=== PATIENT | female | born 1975 | race Caucasian/White ===

== ENCOUNTER → 2018-05-19 | Outpatient (REF) | payer OTHER ==
[2018-05-19 16:58] LABS: ALBUMIN 3.7 GM/DL (3.2-5.2); ALT/SGPT 103 U/L (12-78); BILIRUBIN,TOTAL 0.3 MG/DL (0.2-1.0); BLOOD UREA NITROGEN 14 MG/DL (7-18); CALCIUM LEVEL 9.6 MG/DL (8.5-10.1); CARBON DIOXIDE LEVEL 31 MEQ/L (21-32); CHLORIDE LEVEL 100 MEQ/L (98-107); CHOLESTEROL LEVEL 246 MG/DL (<200); CHOLESTEROL RISK RATIO 2.963 (<5); CREATININE FOR GFR 0.68 MG/DL (0.55-1.30); GLOMERULAR FILTRATION RATE > 60.0 (>58); GLUCOSE, FASTING 70 MG/DL (70-100); HDL CHOLESTEROL 83 MG/DL (>40); LDL CHOLESTEROL 144 MG/DL (<100); NON-HDL-C 163 MG/DL; POTASSIUM SERUM 4.6 MEQ/L (3.5-5.1); SODIUM LEVEL 137 MEQ/L (136-145); TOTAL PROTEIN 8.2 GM/DL (6.4-8.2); TRIGLYCERIDES LEVEL 96 MG/DL (<150)
[2018-05-19 17:09] LABS: CREATININE, URINE 35.5 MG/DL; MALB URINE SIEMENS 99.3 MG/L; MAU/CREAT RATIO 279.7 MCG/MG (0.0-30.0)
== END ==
LOC: M LAB REF 16:10
PROVIDERS: ATTEND Nurse Practitioner Primary Care
DX: E10.21 Type 1 diabetes mellitus with diabetic nephropathy (principal)

== ENCOUNTER 2019-05-23 12:59 | Emergency (ER) | payer MEDICAID, OTHER ==
[~2019-05-23] VITALS: Ht 154.9 cm; Wt 67.3 kg
[2019-05-23 13:00] VITALS: BP 135/69
[2019-05-23] MEDS ORDERED: BASA100I (13:08)
[2019-05-23] MEDS ORDERED: GABA600T4 (13:08)
[2019-05-23] MEDS ORDERED: BACL1TAB9 (13:08)
[2019-05-23] MEDS ORDERED: ADME100I (13:08)
[2019-05-23] MEDS ORDERED: BUPR1FIL3 (13:08)
[2019-05-23] MEDS ORDERED: ADDE25CA (13:08)
[2019-05-23] MEDS ORDERED: BACT800T5 PO (13:34)
== END 2019-05-23 13:40 | disposition home or self-care (01) ==
LOC: M ED 12:59
DX: L02.411 Cutaneous abscess of right axilla (principal); F19.10 Other psychoactive substance abuse, uncomplicated; E11.9 Type 2 diabetes mellitus without complications; F32.9 Major depressive disorder, single episode, unspecified; F17.200 Nicotine dependence, unspecified, uncomplicated; Z88.0 Allergy status to penicillin; Z79.899 Other long term (current) drug therapy; Z79.4 Long term (current) use of insulin

== ENCOUNTER 2019-10-14 14:04 | Inpatient (IN) | payer MEDICAID ==
[~2019-10-14 14:04] MED LIST: ADDE25CA; ADME100I; BACL1TAB9; BACT800T5 PO; BASA100I; BUPR1FIL3; GABA600T4
[2019-10-14] MEDS ORDERED: INSULIN REGULAR 100UNITS IN 0.9% SODIUM CHLORIDE 100ML IVBAG As Ordered ONE (17:41)
[2019-10-14] MEDS ORDERED: HumuLIN R (REGULAR) INSULIN (NovoLIN R) **100U/ML** PER UNIT As Ordered ONE (17:41)
[2019-10-15] MEDS ORDERED: LEVEMIR (INSULIN DETEMIR) 1 UNITS/0.01ML As Ordered ONE (08:07)
[2019-10-15] MEDS ORDERED: DULoxetine 30 MG CAP (CYMBALTA) As Ordered ONE (09:15)
[2019-10-15] MEDS ORDERED: GABAPENTIN 300 MG CAP As Ordered ONE (09:15)
== END 2019-10-15 09:29 | disposition left against medical advice (07) | DRG 420 ==
LOC: M ED 14:04 → M ICU 18:30
PROVIDERS: ADMIT Internal Medicine; ATTEND Internal Medicine
DX: E10.65 Type 1 diabetes mellitus with hyperglycemia (principal); B18.2 Chronic viral hepatitis C; F17.200 Nicotine dependence, unspecified, uncomplicated; G93.41 Metabolic encephalopathy

== ENCOUNTER → 2020-06-16 | Outpatient (CLI) | payer OTHER ==
[2020-06-16 13:54] LABS: HEMATOCRIT 39.8 % (36.0-47.0); HEMOGLOBIN 12.5 g/dl (12.0-15.5); MEAN CORPUSCULAR HGB CONC 31.4 g/dl (32.0-36.5); MEAN CORPUSCULAR VOLUME 95.4 fl (80.0-96.0); PLATELET COUNT, AUTOMATED 426 10^3/uL (150-450); RED BLOOD COUNT 4.17 10^6/uL (4.00-5.40); WHITE BLOOD COUNT 9.1 10^3/uL (4.0-10.0)
[2020-06-16 14:25] LABS: ALBUMIN 3.6 GM/DL (3.2-5.2); ALT/SGPT 44 U/L (12-78); BILIRUBIN,TOTAL 0.2 MG/DL (0.2-1.0); BLOOD UREA NITROGEN 17 MG/DL (7-18); CALCIUM LEVEL 9.7 MG/DL (8.5-10.1); CARBON DIOXIDE LEVEL 33 MEQ/L (21-32); CHLORIDE LEVEL 99 MEQ/L (98-107); CREATININE FOR GFR 1.15 MG/DL (0.55-1.30); GLOMERULAR FILTRATION RATE 54.8 (>58); GLUCOSE, FASTING 184 MG/DL (70-100); POTASSIUM SERUM 4.3 MEQ/L (3.5-5.1); SODIUM LEVEL 137 MEQ/L (136-145); TOTAL PROTEIN 7.8 GM/DL (6.4-8.2)
[2020-06-16 14:44] LABS: HEPATITIS B SURFACE ANTIGEN NEGATIVE (NEGATIVE)
[2020-06-16 14:48] LABS: HCG, SERUM QUALITATIVE NEGATIVE (NEGATIVE)
[2020-06-16 15:13] LABS: HIV 1&2 SCREEN CENTAUR NEGATIVE (NEGATIVE)
[2020-06-16 15:23] LABS: HEPATITIS C VIRUS ABY INDEX > 11.0 INDEX (<0.8)
--- NOTE | 2020-06-16 22:02 | ECGEPIP ---
[facility] Test Date: 2020-06-16 Pat Name: ROLAND STROUD Department: Room: - Gender: Female Inclusion Specialist: YEMI : [id number] Requested By: Leonardo Lane Order Number: [id number] Reading MD: Frank Gallegos Measurements Intervals Tad Rate: 108 P: 64 VT: 148 QRS: 91 QRSD: 70 T: 60 QT: 340 QTc: 455 Interpretive Statements Sinus tachycardia LA conduction disturbance Somewhat low voltages with slow per corneal R wave progression and incomplete RBBB; body habitus versus pulmonary disease. Could not rule out prior septal injury. No prior tracing for comparison. Clincal correlation advised Electronically Signed on 06-16-2020 22:01:36 EDT by Frank Gallegos
== END ==
LOC: M LAB 12:43
PROVIDERS: ATTEND Family Medicine
DX: F11.20 Opioid dependence, uncomplicated (principal)

== ENCOUNTER → 2021-08-06 | Outpatient (CLI) | payer OTHER ==
[2021-08-06 16:37] LABS: HEMATOCRIT 36.5 % (36.0-47.0); HEMOGLOBIN 11.4 g/dl (12.0-15.5); MEAN CORPUSCULAR HEMOGLOBIN 28.7 pg (27.0-33.0); MEAN CORPUSCULAR HGB CONC 31.2 g/dl (32.0-36.5); MEAN CORPUSCULAR VOLUME 91.9 fl (80.0-96.0); PLATELET COUNT, AUTOMATED 600 10^3/uL (150-450); RED BLOOD COUNT 3.97 10^6/uL (4.00-5.40); WHITE BLOOD COUNT 10.7 10^3/uL (4.0-10.0)
[2021-08-06 17:34] LABS: HCG, SERUM QUALITATIVE NEGATIVE (NEGATIVE)
[2021-08-06 18:51] LABS: ALBUMIN 2.7 GM/DL (3.2-5.2); ALT/SGPT 20 U/L (12-78); BILIRUBIN,TOTAL 0.2 MG/DL (0.2-1.0); BLOOD UREA NITROGEN 15 MG/DL (7-18); CALCIUM LEVEL 9.1 MG/DL (8.5-10.1); CARBON DIOXIDE LEVEL 31 MEQ/L (21-32); CHLORIDE LEVEL 96 MEQ/L (98-107); CREATININE FOR GFR 1.21 MG/DL (0.55-1.30); GLOMERULAR FILTRATION RATE 51.2 (>58); GLUCOSE, FASTING 429 MG/DL (70-100); HEPATITIS B SURFACE ANTIGEN NEGATIVE (NEGATIVE); HEPATITIS C VIRUS ABY INDEX > 11.0 INDEX (<0.8); HIV 1&2 SCREEN CENTAUR NEGATIVE (NEGATIVE); POTASSIUM SERUM 5.5 MEQ/L (3.5-5.1); SODIUM LEVEL 130 MEQ/L (136-145); TOTAL PROTEIN 8.1 GM/DL (6.4-8.2)
[2021-08-06 19:01] LABS: GC DNA AMPLIFICATION NEGATIVE (NEGATIVE)
[2021-08-08 15:07] LABS: HEPATITIS C QUANTITATION 22500 IU/mL (.)
== END ==
LOC: M WUC 12:29
PROVIDERS: ATTEND Family Medicine
DX: F11.20 Opioid dependence, uncomplicated (principal); Z79.899 Other long term (current) drug therapy

== ENCOUNTER → 2022-07-30 | Outpatient (CLI) | payer OTHER ==
[2022-07-30 16:34] LABS: HEMATOCRIT 37.9 % (36.0-47.0); HEMOGLOBIN 11.9 g/dl (12.0-15.5); MEAN CORPUSCULAR HEMOGLOBIN 28.8 pg (27.0-33.0); MEAN CORPUSCULAR HGB CONC 31.4 g/dl (32.0-36.5); MEAN CORPUSCULAR VOLUME 91.8 fl (80.0-96.0); PLATELET COUNT, AUTOMATED 330 10^3/uL (150-450); RED BLOOD COUNT 4.13 10^6/uL (4.00-5.40); WHITE BLOOD COUNT 5.9 10^3/uL (4.0-10.0)
[2022-07-30 16:54] LABS: HCG, SERUM QUALITATIVE NEGATIVE (NEGATIVE)
[2022-07-30 17:03] LABS: HEPATITIS B SURFACE ANTIGEN NEGATIVE (NEGATIVE)
[2022-07-30 17:15] LABS: HIV 1&2 SCREEN NEGATIVE (NEGATIVE)
[2022-07-30 17:30] LABS: ALBUMIN 3.3 G/DL (3.2-5.2); ALKALINE PHOSPHATASE 257 U/L (46-116); ALT/SGPT 35 U/L (7.0-40); AST/SGOT 38 U/L (<34); BILIRUBIN,TOTAL 0.2 MG/DL (0.3-1.2); BLOOD UREA NITROGEN 23 MG/DL (9-23); CALCIUM LEVEL 9.5 MG/DL (8.5-10.1); CARBON DIOXIDE LEVEL 30 MMOL/L (20-31); CHLORIDE LEVEL 99 MMOL/L (98-107); CREATININE FOR GFR 1.11 MG/DL (0.55-1.30); GLOMERULAR FILTRATION RATE 56.3 (>58); GLUCOSE, FASTING 419 MG/DL (60-100); POTASSIUM SERUM 4.5 MMOL/L (3.5-5.1); SODIUM LEVEL 134 MMOL/L (136-145); TOTAL PROTEIN 7.7 G/DL (5.7-8.2)
[2022-07-30 17:31] LABS: HEPATITIS C VIRUS ABY INDEX > 11.0 INDEX (<0.8)
[2022-07-30 18:26] LABS: GC DNA AMPLIFICATION NEGATIVE (NEGATIVE)
== END ==
LOC: M LAB 15:15
PROVIDERS: ATTEND Family Medicine
DX: F11.20 Opioid dependence, uncomplicated (principal)

== ENCOUNTER 2023-01-25 02:08 | Inpatient (IN) | payer OTHER ==
[~2023-01-25] VITALS: Ht 154.9 cm; Wt 47.7 kg
[~2023-01-25 02:08] MED LIST changes: -ADME100I; +ADME100I SC; -BACL1TAB9; +BACL1TAB9 PO; -BASA100I; +BASA100I PO; -GABA600T4; +GABA600T4 PO
[2023-01-25 03:01] LABS: VENOUS BASE EXCESS 4.5 (-2.0-2.0); VENOUS HCO3 32.4 MMOL/L (23.0-27.0); VENOUS O2 SATURATION 50.9 % (60.0-80.0); VENOUS PH 7.316 UNITS (7.330-7.430); VENOUS STANDARD HCO3 27.4 MMOL/L; VENOUS TOTAL CO2 34.4 MMOL/L (24.0-28.0)
[2023-01-25 03:08] LABS: BASO # 0.1 10^3/uL (0.0-0.2); BASO % 0.3 % (0.0-1.0); EOS # 0.1 10^3/uL (0.0-0.5); EOS % 0.2 % (0.0-3.0); HEMATOCRIT 34.4 % (36.0-47.0); HEMOGLOBIN 11.2 g/dl (12.0-15.5); LYMPH # 3.5 10^3/uL (1.5-5.0); LYMPH % 12.8 % (24.0-44.0); MEAN CORPUSCULAR HEMOGLOBIN 28.9 pg (27.0-33.0); MEAN CORPUSCULAR HGB CONC 32.6 g/dl (32.0-36.5); MEAN CORPUSCULAR VOLUME 88.7 fl (80.0-96.0); MONO # 1.3 10^3/uL (0.0-0.8); MONO % 4.8 % (2.0-8.0); NEUTROPHILS # 22.3 10^3/uL (1.5-8.5); NEUTROPHILS % 80.5 % (36.0-66.0); PLATELET COUNT, AUTOMATED 470 10^3/uL (150-450); RED BLOOD COUNT 3.88 10^6/uL (4.00-5.40); WHITE BLOOD COUNT 27.7 10^3/uL (4.0-10.0)
[2023-01-25 03:40] LABS: ACETONE/KETONE 0.52 MMOL/L (0.02-0.27); ALBUMIN 2.5 G/DL (3.2-5.2); BILIRUBIN,DIRECT 0.1 MG/DL (<0.4); BILIRUBIN,TOTAL 0.3 MG/DL (0.3-1.2); CALCIUM LEVEL 9.5 MG/DL (8.5-10.1); CREATININE FOR GFR 1.07 MG/DL (0.55-1.30); GLOMERULAR FILTRATION RATE 58.8 (>58); TOTAL PROTEIN 7.4 G/DL (5.7-8.2)
[2023-01-25] MEDS ORDERED: VANCOMYCIN HCL 1,500 MG in IV FLUID PLACE HOLDER 1 EA IV ONE (05:20)
[2023-01-25] MEDS ORDERED: NS 1,000 ML IV ONE (05:20)
[2023-01-25] MEDS ORDERED: ISOVUE-370 76% 100ML VIAL As Ordered ONE (05:38)
[2023-01-25] MEDS ORDERED: VANCOMYCIN HCL 750 MG, VIAL MATE ADAPTER 1 EACH in D5W 250 ML IV ONE ×6 (06:00)
[2023-01-25] MEDS ORDERED: CEFEPIME HCL 1 GM in D5W MINI-BAG PLUS 50 ML IV ONE (06:10)
[2023-01-25] MEDS ORDERED: GLUCAGON INJ 1MG VIAL SC PRN ×2 (07:40→21:05)
[2023-01-25] MEDS ORDERED: GLUCOSE 4GM CHEW TABLET PO PRN ×2 (07:40→21:05)
[2023-01-25] MEDS ORDERED: DEXTROSE 50% 50ML SYRINGE IV PRN ×2 (07:40→21:05)
[2023-01-25] MEDS ORDERED: metroNIDAZOLE 500 MG in IV 1 EA IV SCH (07:50)
[2023-01-25] MEDS ORDERED: VANCOMYCIN HCL 1,000 MG, VIAL MATE ADAPTER 1 EACH in D5W 250 ML IV SCH (07:50)
[2023-01-25] MEDS ORDERED: MED REC IN PROGRESS XX SCH (09:00)
[2023-01-25 09:04] LABS: RSV AMPLIFICATION NEGATIVE (NEGATIVE)
[2023-01-25] MEDS: NS 1,000 ML IV SCH ×2 (10:17→21:35)
[2023-01-25] MEDS ORDERED: PIPERACILLIN/TAZOBACTAM SOD 4.5 GM in D5W MINI-BAG PLUS 50 ML IV SCH (11:15)
[2023-01-25 11:16] VITALS: BP 140/74; TEMP 97.2; O2SAT 100
[2023-01-25] MEDS: INSULIN LISPRO (NovoLOG) PER UNIT SC SCH ×2 (12:17→18:00)
[2023-01-25] MEDS ORDERED: VYVA70CA3 PO (12:51)
[2023-01-25] MEDS ORDERED: DULO1CAP6 PO (12:51)
[2023-01-25] MEDS ORDERED: DOCU100C16 PO (12:51)
[2023-01-25] MEDS ORDERED: METH10CO PO (12:51)
[2023-01-25] MEDS ORDERED: HOME MED LIST COMPLETE! XX SCH (12:55)
[2023-01-25] MEDS ORDERED: CLINDAMYCIN 600 MG in IV 1 EA IV SCH (13:45)
[2023-01-25 14:00] VITALS: BP 118/66; TEMP 97.6; O2SAT 97
[2023-01-25] MEDS: ENOXAPARIN 40MG/0.4ML SYRINGE (J1650 PER 10MG) SC SCH (14:20)
[2023-01-25] MEDS: MEROPENEM INJ 1 GM in IV 1 EA IV SCH ×2 (15:09→23:23)
[2023-01-25] MEDS: CLINDAMYCIN 900 MG in IV 1 EA IV SCH (16:31)
[2023-01-25] MEDS: GABAPENTIN 300 MG CAP PO SCH ×2 (16:31→21:32)
[2023-01-25] MEDS: LACTOBACILLUS ACIDOPHILUS CAP (BACID) PO SCH (18:00)
[2023-01-25] MEDS ORDERED: LIDOCAINE 1% SDV 30ML VIAL As Ordered ONE (18:04)
[2023-01-25] MEDS ORDERED: KETOROLAC 60MG 2ML VIAL As Ordered ONE (18:34)
[2023-01-25] MEDS ORDERED: LIDOCAINE 2% 100MG/5ML SDV (FOR ANES.) As Ordered ONE (18:34)
[2023-01-25] MEDS ORDERED: MIDAZOLAM INJ 2MG/2ML VIAL As Ordered ONE (18:34)
[2023-01-25] MEDS ORDERED: propofoL 200 MG/20 ML VIAL As Ordered ONE (18:34)
[2023-01-25] MEDS ORDERED: ONDANSETRON 4MG 2ML VIAL As Ordered ONE (18:34)
[2023-01-25] MEDS ORDERED: fentaNYL 100 MCG/2 ML INJECTION As Ordered ONE (18:35)
[2023-01-25 20:30] VITALS: BP 111/67; O2SAT 97
[2023-01-25 21:05] VITALS: BP 123/66; TEMP 97.7; O2SAT 99
[2023-01-25] MEDS ORDERED: INSULIN LISPRO (NovoLOG) PER UNIT SC SCH (21:05)
[2023-01-25] MEDS: DULoxetine 30MG CAPSULE (CYMBALTA) PO SCH (21:32)
[2023-01-25] MEDS: LEVEMIR (INSULIN DETEMIR) 1 UNITS/0.01ML SC SCH (21:35)
[2023-01-25] MEDS: VANCOMYCIN HCL 500 MG in D5W MINI-BAG PLUS 100 ML IV SCH (21:35)
[2023-01-25 22:00] VITALS: BP 118/56; TEMP 97.5; O2SAT 98
[2023-01-25 23:04] VITALS: BP 112/61; TEMP 98; O2SAT 97
[2023-01-26 00:02] VITALS: BP 106/59; TEMP 97.7; O2SAT 96
[2023-01-26] MEDS: CLINDAMYCIN 900 MG in IV 1 EA IV SCH ×4 (00:22→23:23)
[2023-01-26 00:58] VITALS: BP 112/60; TEMP 98.5; O2SAT 97
[2023-01-26] MEDS: NS 1,000 ML IV SCH ×4 (03:49→23:23)
[2023-01-26 05:23] VITALS: BP 101/57; TEMP 102; O2SAT 98
[2023-01-26] MEDS: ACETAMINOPHEN TAB 650MG DOSE (2X325MG) PO PRN (05:29)
[2023-01-26] MEDS: MEROPENEM INJ 1 GM in IV 1 EA IV SCH ×3 (06:25→21:40)
[2023-01-26 06:27] VITALS: TEMP 100.8
[2023-01-26 06:28] LABS: BASO # 0.1 10^3/uL (0.0-0.2); BASO % 0.2 % (0.0-1.0); EOS % 0.1 % (0.0-3.0); HEMATOCRIT 28.8 % (36.0-47.0); HEMOGLOBIN 9.5 g/dl (12.0-15.5); LYMPH # 1.9 10^3/uL (1.5-5.0); LYMPH % 7.9 % (24.0-44.0); MEAN CORPUSCULAR HEMOGLOBIN 29.4 pg (27.0-33.0); MEAN CORPUSCULAR VOLUME 89.2 fl (80.0-96.0); MONO # 1.2 10^3/uL (0.0-0.8); NEUTROPHILS # 20.1 10^3/uL (1.5-8.5); NEUTROPHILS % 85.4 % (36.0-66.0); PLATELET COUNT, AUTOMATED 412 10^3/uL (150-450); RED BLOOD COUNT 3.23 10^6/uL (4.00-5.40); WHITE BLOOD COUNT 23.5 10^3/uL (4.0-10.0)
[2023-01-26 07:04] LABS: BLOOD UREA NITROGEN 30 MG/DL (9-23); CALCIUM LEVEL 7.9 MG/DL (8.5-10.1); CARBON DIOXIDE LEVEL 28 MMOL/L (20-31); CHLORIDE LEVEL 102 MMOL/L (98-107); CREATININE FOR GFR 0.92 MG/DL (0.55-1.30); GLOMERULAR FILTRATION RATE > 60.0 (>58); GLUCOSE, FASTING 140 MG/DL (60-100); POTASSIUM SERUM 4.7 MMOL/L (3.5-5.1); SODIUM LEVEL 135 MMOL/L (136-145)
[2023-01-26] MEDS: ENOXAPARIN 40MG/0.4ML SYRINGE (J1650 PER 10MG) SC SCH (07:54)
[2023-01-26] MEDS: LACTOBACILLUS ACIDOPHILUS CAP (BACID) PO SCH ×2 (07:54→17:43)
[2023-01-26] MEDS: GABAPENTIN 300 MG CAP PO SCH ×4 (07:54→20:49)
[2023-01-26] MEDS: INSULIN LISPRO (NovoLOG) PER UNIT SC SCH ×4 (07:55→21:00)
[2023-01-26] MEDS: KETOROLAC 30 MG/ML 1ML VIAL IV PRN ×2 (08:00→20:49)
[2023-01-26] MEDS: VANCOMYCIN HCL 500 MG in D5W MINI-BAG PLUS 100 ML IV SCH ×2 (09:08→20:49)
[2023-01-26] MEDS: METHADONE 10MG TAB PO SCH (09:08)
[2023-01-26 14:03] VITALS: BP 120/62; TEMP 98.4; O2SAT 97
[2023-01-26 20:00] VITALS: BP 134/69; TEMP 98.2; O2SAT 99
[2023-01-26] MEDS: DULoxetine 30MG CAPSULE (CYMBALTA) PO SCH (20:49)
[2023-01-26] MEDS ORDERED: MEROPENEM INJ 1 GM in IV 1 EA IV SCH (21:00)
[2023-01-26] MEDS: LEVEMIR (INSULIN DETEMIR) 1 UNITS/0.01ML SC SCH (21:37)
[2023-01-27] MEDS: MEROPENEM INJ 1 GM in IV 1 EA IV SCH ×3 (05:10→21:18)
[2023-01-27 06:00] VITALS: BP 120/65; TEMP 98; O2SAT 94
[2023-01-27 06:58] LABS: BASO # 0.1 10^3/uL (0.0-0.2); BASO % 0.3 % (0.0-1.0); EOS # 0.2 10^3/uL (0.0-0.5); HEMATOCRIT 29.7 % (36.0-47.0); HEMOGLOBIN 9.4 g/dl (12.0-15.5); LYMPH # 2.4 10^3/uL (1.5-5.0); LYMPH % 15.5 % (24.0-44.0); MEAN CORPUSCULAR HEMOGLOBIN 28.4 pg (27.0-33.0); MEAN CORPUSCULAR HGB CONC 31.6 g/dl (32.0-36.5); MEAN CORPUSCULAR VOLUME 89.7 fl (80.0-96.0); MONO # 0.8 10^3/uL (0.0-0.8); MONO % 5.3 % (2.0-8.0); NEUTROPHILS % 76.4 % (36.0-66.0); PLATELET COUNT, AUTOMATED 417 10^3/uL (150-450); RED BLOOD COUNT 3.31 10^6/uL (4.00-5.40); WHITE BLOOD COUNT 15.7 10^3/uL (4.0-10.0)
[2023-01-27 07:29] LABS: BLOOD UREA NITROGEN 20 MG/DL (9-23); CALCIUM LEVEL 7.5 MG/DL (8.5-10.1); CARBON DIOXIDE LEVEL 29 MMOL/L (20-31); CHLORIDE LEVEL 104 MMOL/L (98-107); CREATININE FOR GFR 0.84 MG/DL (0.55-1.30); GLOMERULAR FILTRATION RATE > 60.0 (>58); GLUCOSE, FASTING 69 MG/DL (60-100); POTASSIUM SERUM 4.2 MMOL/L (3.5-5.1); SODIUM LEVEL 138 MMOL/L (136-145)
[2023-01-27] MEDS: INSULIN LISPRO (NovoLOG) PER UNIT SC SCH ×6 (07:30→21:10)
[2023-01-27] MEDS: LACTOBACILLUS ACIDOPHILUS CAP (BACID) PO SCH ×2 (08:00→17:40)
[2023-01-27] MEDS: ENOXAPARIN 40MG/0.4ML SYRINGE (J1650 PER 10MG) SC SCH (09:00)
[2023-01-27] MEDS: GABAPENTIN 300 MG CAP PO SCH ×4 (09:12→21:18)
[2023-01-27] MEDS: METHADONE 10MG TAB PO SCH (09:12)
[2023-01-27] MEDS: KETOROLAC 30 MG/ML 1ML VIAL IV PRN ×2 (09:17→21:18)
[2023-01-27] MEDS: VANCOMYCIN HCL 500 MG in D5W MINI-BAG PLUS 100 ML IV SCH ×2 (09:22→20:00)
[2023-01-27] MEDS: CLINDAMYCIN 900 MG in IV 1 EA IV SCH (09:27)
[2023-01-27 14:00] VITALS: BP 127/68; TEMP 98; O2SAT 95
[2023-01-27 20:48] VITALS: BP 126/67; TEMP 98.4; O2SAT 96
[2023-01-27] MEDS: LEVEMIR (INSULIN DETEMIR) 1 UNITS/0.01ML SC SCH (21:18)
[2023-01-27] MEDS: DULoxetine 30MG CAPSULE (CYMBALTA) PO SCH (21:18)
[2023-01-28] MEDS: MEROPENEM INJ 1 GM in IV 1 EA IV SCH ×3 (05:43→21:06)
[2023-01-28 06:00] VITALS: BP 121/65; TEMP 98; O2SAT 96
[2023-01-28 06:02] LABS: BASO # 0.1 10^3/uL (0.0-0.2); BASO % 0.4 % (0.0-1.0); EOS # 0.2 10^3/uL (0.0-0.5); EOS % 1.9 % (0.0-3.0); HEMATOCRIT 29.1 % (36.0-47.0); HEMOGLOBIN 9.3 g/dl (12.0-15.5); LYMPH # 3.2 10^3/uL (1.5-5.0); LYMPH % 28.4 % (24.0-44.0); MEAN CORPUSCULAR HEMOGLOBIN 28.4 pg (27.0-33.0); MONO # 0.8 10^3/uL (0.0-0.8); MONO % 6.7 % (2.0-8.0); NEUTROPHILS # 6.7 10^3/uL (1.5-8.5); NEUTROPHILS % 60.3 % (36.0-66.0); PLATELET COUNT, AUTOMATED 463 10^3/uL (150-450); RED BLOOD COUNT 3.27 10^6/uL (4.00-5.40); WHITE BLOOD COUNT 11.2 10^3/uL (4.0-10.0)
[2023-01-28 06:34] LABS: BLOOD UREA NITROGEN 18 MG/DL (9-23); CALCIUM LEVEL 7.8 MG/DL (8.5-10.1); CARBON DIOXIDE LEVEL 30 MMOL/L (20-31); CHLORIDE LEVEL 101 MMOL/L (98-107); CREATININE FOR GFR 0.76 MG/DL (0.55-1.30); GLOMERULAR FILTRATION RATE > 60.0 (>58); GLUCOSE, FASTING 192 MG/DL (60-100); SODIUM LEVEL 135 MMOL/L (136-145)
[2023-01-28] MEDS: INSULIN LISPRO (NovoLOG) PER UNIT SC SCH ×7 (07:30→21:07)
[2023-01-28] MEDS: ENOXAPARIN 40MG/0.4ML SYRINGE (J1650 PER 10MG) SC SCH (08:16)
[2023-01-28] MEDS: GABAPENTIN 300 MG CAP PO SCH ×4 (08:16→21:06)
[2023-01-28] MEDS: METHADONE 10MG TAB PO SCH (08:16)
[2023-01-28] MEDS: LACTOBACILLUS ACIDOPHILUS CAP (BACID) PO SCH ×2 (08:16→17:15)
[2023-01-28] MEDS: VANCOMYCIN HCL 500 MG in D5W MINI-BAG PLUS 100 ML IV SCH (08:17)
[2023-01-28] MEDS ORDERED: fentaNYL 100 MCG/2 ML INJECTION As Ordered ONE (09:24)
[2023-01-28] MEDS ORDERED: MIDAZOLAM INJ 2MG/2ML VIAL As Ordered ONE (09:24)
[2023-01-28] MEDS ORDERED: propofoL 200 MG/20 ML VIAL As Ordered ONE ×2 (09:24→11:47)
[2023-01-28] MEDS ORDERED: LIDOCAINE 2% 100MG/5ML SDV (FOR ANES.) As Ordered ONE (09:25)
[2023-01-28] MEDS ORDERED: ONDANSETRON 4MG 2ML VIAL As Ordered ONE (09:25)
[2023-01-28] MEDS: KETOROLAC 30 MG/ML 1ML VIAL IV PRN ×3 (09:35→21:40)
[2023-01-28] MEDS ORDERED: LIDOCAINE 1% MDV 20ML VIAL As Ordered ONE (11:11)
[2023-01-28] MEDS ORDERED: ONDANSETRON 4MG 2ML VIAL IV PRN (12:15)
[2023-01-28] MEDS ORDERED: INSULIN LISPRO (NovoLOG) PER UNIT SC PRN ×2 (12:15→12:20)
[2023-01-28] MEDS ORDERED: LR 1,000 ML IV SCH ×2 (12:15→12:20)
[2023-01-28] MEDS ORDERED: METOCLOPRAMIDE INJ 10MG/2ML VIAL IV PRN (12:15)
[2023-01-28] MEDS ORDERED: fentaNYL 100 MCG/2 ML INJECTION IV PRN (12:15)
[2023-01-28] MEDS ORDERED: oxyCODONE 5MG TAB PO PRN (12:15)
[2023-01-28 13:00] VITALS: BP 127/74; TEMP 97; O2SAT 92
[2023-01-28 13:45] VITALS: BP 144/72; TEMP 97.2; O2SAT 99
[2023-01-28] MEDS: SENOKOT S TAB PO SCH (21:07)
[2023-01-28] MEDS: DULoxetine 30MG CAPSULE (CYMBALTA) PO SCH (21:07)
[2023-01-28] MEDS: LEVEMIR (INSULIN DETEMIR) 1 UNITS/0.01ML SC SCH (21:08)
[2023-01-28 21:18] VITALS: BP 141/67; TEMP 98.4; O2SAT 96
[2023-01-29 01:20] VITALS: BP 131/70; TEMP 98; O2SAT 97
[2023-01-29 05:20] VITALS: BP 121/61; TEMP 98.8; O2SAT 93
[2023-01-29] MEDS: MEROPENEM INJ 1 GM in IV 1 EA IV SCH ×3 (05:27→21:04)
[2023-01-29] MEDS: KETOROLAC 30 MG/ML 1ML VIAL IV PRN ×3 (06:31→20:29)
[2023-01-29 06:40] LABS: BASO % 0.4 % (0.0-1.0); EOS # 0.2 10^3/uL (0.0-0.5); EOS % 2.1 % (0.0-3.0); HEMATOCRIT 27.2 % (36.0-47.0); HEMOGLOBIN 8.7 g/dl (12.0-15.5); LYMPH # 2.5 10^3/uL (1.5-5.0); LYMPH % 23.8 % (24.0-44.0); MEAN CORPUSCULAR HEMOGLOBIN 28.5 pg (27.0-33.0); MEAN CORPUSCULAR VOLUME 89.2 fl (80.0-96.0); MONO # 0.9 10^3/uL (0.0-0.8); MONO % 8.1 % (2.0-8.0); NEUTROPHILS # 6.8 10^3/uL (1.5-8.5); NEUTROPHILS % 63.5 % (36.0-66.0); PLATELET COUNT, AUTOMATED 490 10^3/uL (150-450); RED BLOOD COUNT 3.05 10^6/uL (4.00-5.40); WHITE BLOOD COUNT 10.7 10^3/uL (4.0-10.0)
[2023-01-29 07:03] LABS: BLOOD UREA NITROGEN 15 MG/DL (9-23); CALCIUM LEVEL 7.9 MG/DL (8.5-10.1); CARBON DIOXIDE LEVEL 30 MMOL/L (20-31); CHLORIDE LEVEL 100 MMOL/L (98-107); CREATININE FOR GFR 0.68 MG/DL (0.55-1.30); GLOMERULAR FILTRATION RATE > 60.0 (>58); GLUCOSE, FASTING 128 MG/DL (60-100); POTASSIUM SERUM 4.6 MMOL/L (3.5-5.1); SODIUM LEVEL 133 MMOL/L (136-145)
[2023-01-29] MEDS: INSULIN LISPRO (NovoLOG) PER UNIT SC SCH ×7 (07:30→21:00)
[2023-01-29] MEDS: GABAPENTIN 300 MG CAP PO SCH ×4 (07:47→20:27)
[2023-01-29] MEDS: LACTOBACILLUS ACIDOPHILUS CAP (BACID) PO SCH ×2 (07:47→17:09)
[2023-01-29] MEDS: METHADONE 10MG TAB PO SCH (07:48)
[2023-01-29] MEDS: MOM 30ML SUSPENSION UDC PO SCH (07:49)
[2023-01-29] MEDS: ENOXAPARIN 40MG/0.4ML SYRINGE (J1650 PER 10MG) SC SCH (07:49)
[2023-01-29] MEDS: SENOKOT S TAB PO SCH ×2 (07:51→20:28)
[2023-01-29 09:47] VITALS: BP 145/86; TEMP 98.1; O2SAT 97
[2023-01-29] MEDS: NICOTINE POLACRILEX 2 MG GUM PO PRN ×2 (11:40→17:09)
[2023-01-29 13:59] VITALS: BP 140/73; TEMP 98.1; O2SAT 99
[2023-01-29] MEDS: DULoxetine 30MG CAPSULE (CYMBALTA) PO SCH (20:27)
[2023-01-29] MEDS: LEVEMIR (INSULIN DETEMIR) 1 UNITS/0.01ML SC SCH (20:29)
[2023-01-29 21:00] VITALS: BP 143/79; TEMP 97.7; O2SAT 97
[2023-01-29] MEDS ORDERED: INFLUENZA QUADRIVALENT PF VACCINE 0.5ML SYRINGE IM.IMMUN ONE (21:00)
[2023-01-30] MEDS: MEROPENEM INJ 1 GM in IV 1 EA IV SCH ×3 (05:33→21:34)
[2023-01-30 05:36] VITALS: BP 141/78; TEMP 98.2; O2SAT 96
[2023-01-30 06:25] LABS: BASO # 0.1 10^3/uL (0.0-0.2); BASO % 0.6 % (0.0-1.0); EOS # 0.2 10^3/uL (0.0-0.5); EOS % 1.9 % (0.0-3.0); LYMPH # 2.7 10^3/uL (1.5-5.0); LYMPH % 32.3 % (24.0-44.0); MEAN CORPUSCULAR HEMOGLOBIN 28.7 pg (27.0-33.0); MEAN CORPUSCULAR HGB CONC 32.1 g/dl (32.0-36.5); MEAN CORPUSCULAR VOLUME 89.2 fl (80.0-96.0); MONO # 0.7 10^3/uL (0.0-0.8); MONO % 8.3 % (2.0-8.0); NEUTROPHILS # 4.5 10^3/uL (1.5-8.5); NEUTROPHILS % 54.7 % (36.0-66.0); PLATELET COUNT, AUTOMATED 506 10^3/uL (150-450); RED BLOOD COUNT 3.14 10^6/uL (4.00-5.40); WHITE BLOOD COUNT 8.2 10^3/uL (4.0-10.0)
[2023-01-30 06:54] LABS: BLOOD UREA NITROGEN 14 MG/DL (9-23); CARBON DIOXIDE LEVEL 33 MMOL/L (20-31); CHLORIDE LEVEL 99 MMOL/L (98-107); CREATININE FOR GFR 0.63 MG/DL (0.55-1.30); GLOMERULAR FILTRATION RATE > 60.0 (>58); GLUCOSE, FASTING 205 MG/DL (60-100); POTASSIUM SERUM 4.7 MMOL/L (3.5-5.1); SODIUM LEVEL 135 MMOL/L (136-145)
[2023-01-30] MEDS: METHADONE 10MG TAB PO SCH (08:28)
[2023-01-30] MEDS: GABAPENTIN 300 MG CAP PO SCH ×4 (08:28→20:07)
[2023-01-30] MEDS: LACTOBACILLUS ACIDOPHILUS CAP (BACID) PO SCH ×2 (08:28→18:19)
[2023-01-30] MEDS: SENOKOT S TAB PO SCH ×2 (08:28→20:07)
[2023-01-30] MEDS: MOM 30ML SUSPENSION UDC PO SCH (08:28)
[2023-01-30] MEDS: ENOXAPARIN 40MG/0.4ML SYRINGE (J1650 PER 10MG) SC SCH (08:29)
[2023-01-30] MEDS: KETOROLAC 30 MG/ML 1ML VIAL IV PRN (08:29)
[2023-01-30] MEDS: INSULIN LISPRO (NovoLOG) PER UNIT SC SCH ×7 (10:06→20:14)
[2023-01-30 14:00] VITALS: BP 122/75; TEMP 98.2
[2023-01-30] MEDS: ACETAMINOPHEN TAB 650MG DOSE (2X325MG) PO PRN (16:46)
[2023-01-30] MEDS: LEVEMIR (INSULIN DETEMIR) 1 UNITS/0.01ML SC SCH (20:07)
[2023-01-30] MEDS: DULoxetine 30MG CAPSULE (CYMBALTA) PO SCH (20:07)
[2023-01-30 21:00] VITALS: BP 107/61; TEMP 97.6; O2SAT 95
[2023-01-31] MEDS: ACETAMINOPHEN TAB 650MG DOSE (2X325MG) PO PRN ×3 (03:04→22:05)
[2023-01-31] MEDS: MEROPENEM INJ 1 GM in IV 1 EA IV SCH ×3 (05:31→21:57)
[2023-01-31 06:16] VITALS: BP 128/61; TEMP 98; O2SAT 97
[2023-01-31 06:23] LABS: BASO # 0.1 10^3/uL (0.0-0.2); BASO % 0.6 % (0.0-1.0); EOS # 0.2 10^3/uL (0.0-0.5); EOS % 1.4 % (0.0-3.0); HEMATOCRIT 28.4 % (36.0-47.0); HEMOGLOBIN 9.2 g/dl (12.0-15.5); LYMPH # 2.3 10^3/uL (1.5-5.0); LYMPH % 19.2 % (24.0-44.0); MEAN CORPUSCULAR HEMOGLOBIN 28.8 pg (27.0-33.0); MEAN CORPUSCULAR HGB CONC 32.4 g/dl (32.0-36.5); MONO # 0.9 10^3/uL (0.0-0.8); MONO % 7.6 % (2.0-8.0); NEUTROPHILS # 8.3 10^3/uL (1.5-8.5); NEUTROPHILS % 70.2 % (36.0-66.0); PLATELET COUNT, AUTOMATED 571 10^3/uL (150-450); RED BLOOD COUNT 3.19 10^6/uL (4.00-5.40); WHITE BLOOD COUNT 11.8 10^3/uL (4.0-10.0)
[2023-01-31 06:44] LABS: BLOOD UREA NITROGEN 13 MG/DL (9-23); CALCIUM LEVEL 8.3 MG/DL (8.5-10.1); CARBON DIOXIDE LEVEL 34 MMOL/L (20-31); CHLORIDE LEVEL 99 MMOL/L (98-107); CREATININE FOR GFR 0.76 MG/DL (0.55-1.30); GLOMERULAR FILTRATION RATE > 60.0 (>58); GLUCOSE, FASTING 140 MG/DL (60-100); POTASSIUM SERUM 4.9 MMOL/L (3.5-5.1); SODIUM LEVEL 136 MMOL/L (136-145)
[2023-01-31] MEDS: INSULIN LISPRO (NovoLOG) PER UNIT SC SCH ×7 (07:30→20:15)
[2023-01-31] MEDS: METHADONE 10MG TAB PO SCH (08:46)
[2023-01-31] MEDS: GABAPENTIN 300 MG CAP PO SCH ×4 (08:46→21:58)
[2023-01-31] MEDS: LACTOBACILLUS ACIDOPHILUS CAP (BACID) PO SCH ×2 (08:46→18:16)
[2023-01-31] MEDS: SENOKOT S TAB PO SCH ×2 (08:47→21:00)
[2023-01-31] MEDS: MOM 30ML SUSPENSION UDC PO SCH (08:47)
[2023-01-31] MEDS: ENOXAPARIN 40MG/0.4ML SYRINGE (J1650 PER 10MG) SC SCH (08:47)
[2023-01-31] MEDS: NICOTINE POLACRILEX 2 MG GUM PO PRN (12:09)
[2023-01-31 14:00] VITALS: BP 143/76; TEMP 97.7; O2SAT 97
[2023-01-31 20:10] VITALS: BP 141/75; TEMP 97.9; O2SAT 95
[2023-01-31] MEDS: LEVEMIR (INSULIN DETEMIR) 1 UNITS/0.01ML SC SCH (21:58)
[2023-01-31] MEDS: DULoxetine 30MG CAPSULE (CYMBALTA) PO SCH (21:58)
[2023-02-01] MEDS: MEROPENEM INJ 1 GM in IV 1 EA IV SCH ×2 (05:24→13:32)
[2023-02-01 05:26] VITALS: BP 119/71; TEMP 97.9; O2SAT 96
[2023-02-01 06:19] LABS: BASO # 0.1 10^3/uL (0.0-0.2); BASO % 0.8 % (0.0-1.0); EOS # 0.2 10^3/uL (0.0-0.5); EOS % 2.2 % (0.0-3.0); HEMATOCRIT 29.3 % (36.0-47.0); HEMOGLOBIN 9.3 g/dl (12.0-15.5); LYMPH # 3.7 10^3/uL (1.5-5.0); LYMPH % 36.2 % (24.0-44.0); MEAN CORPUSCULAR HEMOGLOBIN 28.7 pg (27.0-33.0); MEAN CORPUSCULAR HGB CONC 31.7 g/dl (32.0-36.5); MEAN CORPUSCULAR VOLUME 90.4 fl (80.0-96.0); MONO # 0.9 10^3/uL (0.0-0.8); MONO % 8.6 % (2.0-8.0); NEUTROPHILS # 5.2 10^3/uL (1.5-8.5); NEUTROPHILS % 51.2 % (36.0-66.0); PLATELET COUNT, AUTOMATED 607 10^3/uL (150-450); RED BLOOD COUNT 3.24 10^6/uL (4.00-5.40); WHITE BLOOD COUNT 10.2 10^3/uL (4.0-10.0)
[2023-02-01 06:39] LABS: BLOOD UREA NITROGEN 14 MG/DL (9-23); CALCIUM LEVEL 8.8 MG/DL (8.5-10.1); CARBON DIOXIDE LEVEL 38 MMOL/L (20-31); CHLORIDE LEVEL 96 MMOL/L (98-107); CREATININE FOR GFR 0.83 MG/DL (0.55-1.30); GLOMERULAR FILTRATION RATE > 60.0 (>58); GLUCOSE, FASTING 80 MG/DL (60-100); POTASSIUM SERUM 4.8 MMOL/L (3.5-5.1); SODIUM LEVEL 135 MMOL/L (136-145)
[2023-02-01] MEDS: INSULIN LISPRO (NovoLOG) PER UNIT SC SCH ×7 (07:30→20:35)
[2023-02-01] MEDS: ENOXAPARIN 40MG/0.4ML SYRINGE (J1650 PER 10MG) SC SCH (09:00)
[2023-02-01] MEDS: SENOKOT S TAB PO SCH ×2 (09:00→20:42)
[2023-02-01] MEDS: MOM 30ML SUSPENSION UDC PO SCH (09:00)
[2023-02-01] MEDS: LACTOBACILLUS ACIDOPHILUS CAP (BACID) PO SCH ×2 (09:25→17:16)
[2023-02-01] MEDS: GABAPENTIN 300 MG CAP PO SCH ×4 (09:25→20:42)
[2023-02-01] MEDS: METHADONE 10MG TAB PO SCH (09:26)
[2023-02-01] MEDS: ACETAMINOPHEN TAB 650MG DOSE (2X325MG) PO PRN ×2 (11:37→20:44)
[2023-02-01 14:00] VITALS: BP 131/79; TEMP 97.9; O2SAT 95
[2023-02-01] MEDS ORDERED: LINE1TAB6 PO (17:21)
[2023-02-01 20:27] VITALS: BP 117/67; TEMP 97.3; O2SAT 98
[2023-02-01] MEDS: LINEZOLID 600MG TABLET (ZYVOX) PO SCH (20:42)
[2023-02-01] MEDS: DULoxetine 30MG CAPSULE (CYMBALTA) PO SCH (20:42)
[2023-02-01] MEDS: LEVEMIR (INSULIN DETEMIR) 1 UNITS/0.01ML SC SCH (21:00)
[2023-02-02 05:57] VITALS: BP 145/83; TEMP 97.9; O2SAT 98
[2023-02-02] MEDS ORDERED: INSULIN LISPRO (NovoLOG) PER UNIT SC STA (06:09)
[2023-02-02] MEDS ORDERED: ONDANSETRON 4MG 2ML VIAL IV ONE (06:10)
[2023-02-02] MEDS: LEVEMIR (INSULIN DETEMIR) 1 UNITS/0.01ML SC SCH (06:34)
[2023-02-02 07:25] LABS: HEMATOCRIT 31.9 % (36.0-47.0); HEMOGLOBIN 9.9 g/dl (12.0-15.5); MEAN CORPUSCULAR HEMOGLOBIN 27.9 pg (27.0-33.0); MEAN CORPUSCULAR VOLUME 89.9 fl (80.0-96.0); PLATELET COUNT, AUTOMATED 694 10^3/uL (150-450); RED BLOOD COUNT 3.55 10^6/uL (4.00-5.40)
[2023-02-02 08:04] LABS: BLOOD UREA NITROGEN 20 MG/DL (9-23); CALCIUM LEVEL 8.6 MG/DL (8.5-10.1); CARBON DIOXIDE LEVEL 32 MMOL/L (20-31); CHLORIDE LEVEL 92 MMOL/L (98-107); CREATININE FOR GFR 0.94 MG/DL (0.55-1.30); GLOMERULAR FILTRATION RATE > 60.0 (>58); GLUCOSE, FASTING 489 MG/DL (60-100); POTASSIUM SERUM 5.3 MMOL/L (3.5-5.1); SODIUM LEVEL 128 MMOL/L (136-145)
[2023-02-02] MEDS: GABAPENTIN 300 MG CAP PO SCH ×4 (08:58→20:47)
[2023-02-02] MEDS: INSULIN LISPRO (NovoLOG) PER UNIT SC SCH ×5 (08:58→20:48)
[2023-02-02] MEDS: METHADONE 10MG TAB PO SCH (08:58)
[2023-02-02] MEDS: MOM 30ML SUSPENSION UDC PO SCH ×2 (08:58→09:00)
[2023-02-02] MEDS: ENOXAPARIN 40MG/0.4ML SYRINGE (J1650 PER 10MG) SC SCH (08:59)
[2023-02-02] MEDS: SENOKOT S TAB PO SCH ×2 (08:59→20:48)
[2023-02-02] MEDS: LACTOBACILLUS ACIDOPHILUS CAP (BACID) PO SCH ×2 (08:59→17:13)
[2023-02-02] MEDS: LINEZOLID 600MG TABLET (ZYVOX) PO SCH ×2 (08:59→20:47)
[2023-02-02 13:05] VITALS: BP 107/64; O2SAT 94
[2023-02-02 14:00] VITALS: BP 109/68; TEMP 97.2; O2SAT 90
[2023-02-02 15:03] VITALS: BP 107/64; O2SAT 94
[2023-02-02] MEDS: DULoxetine 30MG CAPSULE (CYMBALTA) PO SCH (20:47)
[2023-02-03 05:10] VITALS: BP 124/67; TEMP 97.7; O2SAT 92
[2023-02-03] MEDS: LACTOBACILLUS ACIDOPHILUS CAP (BACID) PO SCH ×2 (07:43→17:35)
[2023-02-03] MEDS: INSULIN LISPRO (NovoLOG) PER UNIT SC SCH ×7 (07:44→21:00)
[2023-02-03 07:50] LABS: BASO # 0.1 10^3/uL (0.0-0.2); BASO % 1.1 % (0.0-1.0); EOS # 0.1 10^3/uL (0.0-0.5); HEMATOCRIT 30.8 % (36.0-47.0); HEMOGLOBIN 9.6 g/dl (12.0-15.5); LYMPH # 3.3 10^3/uL (1.5-5.0); LYMPH % 31.5 % (24.0-44.0); MEAN CORPUSCULAR HEMOGLOBIN 28.1 pg (27.0-33.0); MEAN CORPUSCULAR HGB CONC 31.2 g/dl (32.0-36.5); MEAN CORPUSCULAR VOLUME 90.1 fl (80.0-96.0); MONO # 0.6 10^3/uL (0.0-0.8); MONO % 5.3 % (2.0-8.0); NEUTROPHILS # 6.3 10^3/uL (1.5-8.5); NEUTROPHILS % 60.3 % (36.0-66.0); PLATELET COUNT, AUTOMATED 679 10^3/uL (150-450); RED BLOOD COUNT 3.42 10^6/uL (4.00-5.40); WHITE BLOOD COUNT 10.4 10^3/uL (4.0-10.0)
[2023-02-03 08:21] LABS: BLOOD UREA NITROGEN 19 MG/DL (9-23); CALCIUM LEVEL 8.6 MG/DL (8.5-10.1); CARBON DIOXIDE LEVEL 34 MMOL/L (20-31); CHLORIDE LEVEL 94 MMOL/L (98-107); CREATININE FOR GFR 0.89 MG/DL (0.55-1.30); GLOMERULAR FILTRATION RATE > 60.0 (>58); GLUCOSE, FASTING 318 MG/DL (60-100); POTASSIUM SERUM 5.3 MMOL/L (3.5-5.1); SODIUM LEVEL 131 MMOL/L (136-145)
[2023-02-03] MEDS: LEVEMIR (INSULIN DETEMIR) 1 UNITS/0.01ML SC SCH (08:57)
[2023-02-03] MEDS: SENOKOT S TAB PO SCH ×2 (08:58→21:00)
[2023-02-03] MEDS: ENOXAPARIN 40MG/0.4ML SYRINGE (J1650 PER 10MG) SC SCH (08:58)
[2023-02-03] MEDS: MOM 30ML SUSPENSION UDC PO SCH (08:59)
[2023-02-03] MEDS: LINEZOLID 600MG TABLET (ZYVOX) PO SCH ×2 (08:59→21:41)
[2023-02-03] MEDS: GABAPENTIN 300 MG CAP PO SCH ×4 (08:59→21:41)
[2023-02-03] MEDS: METHADONE 10MG TAB PO SCH (08:59)
[2023-02-03 14:00] VITALS: BP 102/84; TEMP 97.3; O2SAT 97
[2023-02-03] MEDS: NICOTINE POLACRILEX 2 MG GUM PO PRN (17:35)
[2023-02-03] MEDS: DULoxetine 30MG CAPSULE (CYMBALTA) PO SCH (21:41)
[2023-02-04 06:00] VITALS: BP 131/70; TEMP 97.5; O2SAT 96
[2023-02-04] MEDS: LACTOBACILLUS ACIDOPHILUS CAP (BACID) PO SCH ×2 (08:26→17:57)
[2023-02-04] MEDS: METHADONE 10MG TAB PO SCH (08:26)
[2023-02-04] MEDS: SENOKOT S TAB PO SCH ×2 (08:26→21:00)
[2023-02-04] MEDS: GABAPENTIN 300 MG CAP PO SCH ×4 (08:26→20:38)
[2023-02-04] MEDS: LINEZOLID 600MG TABLET (ZYVOX) PO SCH ×2 (08:26→20:38)
[2023-02-04] MEDS: LEVEMIR (INSULIN DETEMIR) 1 UNITS/0.01ML SC SCH (08:27)
[2023-02-04] MEDS: INSULIN LISPRO (NovoLOG) PER UNIT SC SCH ×7 (08:27→20:28)
[2023-02-04] MEDS: ENOXAPARIN 40MG/0.4ML SYRINGE (J1650 PER 10MG) SC SCH (08:28)
[2023-02-04] MEDS: MOM 30ML SUSPENSION UDC PO SCH (08:28)
[2023-02-04 17:16] LABS: HIV SCREEN CENTAUR SOURCE NEGATIVE (NEGATIVE)
[2023-02-04 17:38] LABS: HEPATITIS C VIRUS ABY INDEX > 11.00 INDEX (<0.8)
[2023-02-04] MEDS ORDERED: ONDANSETRON 4MG ORAL DISINTEGRATING TAB PO ONE (19:45)
[2023-02-04] MEDS ORDERED: PILL CUTTER 1 EACH XX PRN (19:50)
[2023-02-04] MEDS: DULoxetine 30MG CAPSULE (CYMBALTA) PO SCH (20:38)
[2023-02-05 05:42] VITALS: BP 134/79; TEMP 97.8; O2SAT 98
[2023-02-05] MEDS: ENOXAPARIN 40MG/0.4ML SYRINGE (J1650 PER 10MG) SC SCH (08:25)
[2023-02-05] MEDS: LACTOBACILLUS ACIDOPHILUS CAP (BACID) PO SCH ×2 (08:25→17:04)
[2023-02-05] MEDS: MOM 30ML SUSPENSION UDC PO SCH (08:25)
[2023-02-05] MEDS: LINEZOLID 600MG TABLET (ZYVOX) PO SCH ×2 (08:25→20:44)
[2023-02-05] MEDS: GABAPENTIN 300 MG CAP PO SCH ×4 (08:25→20:44)
[2023-02-05] MEDS: METHADONE 10MG TAB PO SCH (08:25)
[2023-02-05] MEDS: SENOKOT S TAB PO SCH ×2 (08:25→20:44)
[2023-02-05] MEDS: LEVEMIR (INSULIN DETEMIR) 1 UNITS/0.01ML SC SCH (08:26)
[2023-02-05] MEDS: INSULIN LISPRO (NovoLOG) PER UNIT SC SCH ×7 (08:26→20:21)
[2023-02-05] MEDS: DULoxetine 30MG CAPSULE (CYMBALTA) PO SCH (20:43)
[2023-02-06 05:28] VITALS: BP 105/60; TEMP 98.1; O2SAT 93
[2023-02-06] MEDS: INSULIN LISPRO (NovoLOG) PER UNIT SC SCH ×7 (07:19→20:03)
[2023-02-06] MEDS: LEVEMIR (INSULIN DETEMIR) 1 UNITS/0.01ML SC SCH (08:18)
[2023-02-06] MEDS: GABAPENTIN 300 MG CAP PO SCH ×2 (08:19→12:03)
[2023-02-06] MEDS: LINEZOLID 600MG TABLET (ZYVOX) PO SCH ×2 (08:19→20:12)
[2023-02-06] MEDS: ENOXAPARIN 40MG/0.4ML SYRINGE (J1650 PER 10MG) SC SCH (08:19)
[2023-02-06] MEDS: METHADONE 10MG TAB PO SCH (08:19)
[2023-02-06] MEDS: SENOKOT S TAB PO SCH ×2 (08:19→20:11)
[2023-02-06] MEDS: MOM 30ML SUSPENSION UDC PO SCH (08:19)
[2023-02-06] MEDS: LACTOBACILLUS ACIDOPHILUS CAP (BACID) PO SCH ×2 (08:19→16:35)
[2023-02-06 20:00] VITALS: BP 100/64; TEMP 98.4; O2SAT 98
[2023-02-07 04:59] VITALS: BP 105/58; TEMP 98.1; O2SAT 96
[2023-02-07 06:27] LABS: BASO # 0.1 10^3/uL (0.0-0.2); BASO % 1.3 % (0.0-1.0); EOS # 0.1 10^3/uL (0.0-0.5); EOS % 1.2 % (0.0-3.0); HEMATOCRIT 28.2 % (36.0-47.0); HEMOGLOBIN 8.9 g/dl (12.0-15.5); LYMPH # 3.3 10^3/uL (1.5-5.0); LYMPH % 33.8 % (24.0-44.0); MEAN CORPUSCULAR HEMOGLOBIN 28.7 pg (27.0-33.0); MEAN CORPUSCULAR HGB CONC 31.6 g/dl (32.0-36.5); MONO # 0.6 10^3/uL (0.0-0.8); MONO % 6.4 % (2.0-8.0); NEUTROPHILS # 5.5 10^3/uL (1.5-8.5); NEUTROPHILS % 56.9 % (36.0-66.0); PLATELET COUNT, AUTOMATED 628 10^3/uL (150-450); WHITE BLOOD COUNT 9.7 10^3/uL (4.0-10.0)
[2023-02-07 06:52] LABS: CALCIUM LEVEL 8.8 MG/DL (8.5-10.1); CREATININE FOR GFR 1.25 MG/DL (0.55-1.30); GLOMERULAR FILTRATION RATE 49.1 (>58); POTASSIUM SERUM 5.3 MMOL/L (3.5-5.1)
[2023-02-07] MEDS: ENOXAPARIN 40MG/0.4ML SYRINGE (J1650 PER 10MG) SC SCH (09:00)
[2023-02-07] MEDS: SENOKOT S TAB PO SCH ×3 (09:00→21:00)
[2023-02-07] MEDS: MOM 30ML SUSPENSION UDC PO SCH (09:00)
[2023-02-07] MEDS: LEVEMIR (INSULIN DETEMIR) 1 UNITS/0.01ML SC SCH (09:45)
[2023-02-07] MEDS: INSULIN LISPRO (NovoLOG) PER UNIT SC SCH ×7 (09:46→21:55)
[2023-02-07] MEDS: METHADONE 10MG TAB PO SCH (09:46)
[2023-02-07] MEDS: LACTOBACILLUS ACIDOPHILUS CAP (BACID) PO SCH ×2 (09:46→17:45)
[2023-02-07] MEDS: LINEZOLID 600MG TABLET (ZYVOX) PO SCH ×2 (09:47→21:07)
[2023-02-07 11:42] LABS: BARBITURATES URINE NEGATIVE (NEGATIVE); CANNABINOIDS URINE NEGATIVE (NEGATIVE); COCAINE METABOLITE URINE NEGATIVE (NEGATIVE); OPIATES URINE NEGATIVE (NEGATIVE); PHENCYCLIDINE URINE NEGATIVE (NEGATIVE)
[2023-02-07 11:43] LABS: BENZODIAZEPINES URINE NEGATIVE (NEGATIVE)
[2023-02-07 11:48] LABS: AMPHETAMINES LEVEL URINE POSITIVE (NEGATIVE); METHADONE URINE POSITIVE (NEGATIVE)
[2023-02-07 20:00] VITALS: BP 124/72; TEMP 97.6; O2SAT 96
[2023-02-07] MEDS: DULoxetine 30MG CAPSULE (CYMBALTA) PO SCH (21:07)
[2023-02-07] MEDS: GABAPENTIN 300 MG CAP PO SCH (21:08)
[2023-02-08 06:00] VITALS: BP 127/73; TEMP 97.5; O2SAT 96
[2023-02-08 07:30] VITALS: BP 134/75; TEMP 97.5
[2023-02-08] MEDS: ENOXAPARIN 40MG/0.4ML SYRINGE (J1650 PER 10MG) SC SCH (09:00)
[2023-02-08] MEDS: MOM 30ML SUSPENSION UDC PO SCH (09:00)
[2023-02-08] MEDS: LACTOBACILLUS ACIDOPHILUS CAP (BACID) PO SCH ×2 (09:21→17:28)
[2023-02-08] MEDS: LINEZOLID 600MG TABLET (ZYVOX) PO SCH ×2 (09:21→20:22)
[2023-02-08] MEDS: GABAPENTIN 300 MG CAP PO SCH ×3 (09:22→20:22)
[2023-02-08] MEDS: METHADONE 10MG TAB PO SCH (09:23)
[2023-02-08] MEDS: INSULIN LISPRO (NovoLOG) PER UNIT SC SCH ×7 (09:46→21:00)
[2023-02-08] MEDS: LEVEMIR (INSULIN DETEMIR) 1 UNITS/0.01ML SC SCH (09:54)
[2023-02-08 14:00] VITALS: BP 140/84; TEMP 98.1; O2SAT 97
[2023-02-08 16:49] LABS: CREATININE FOR GFR 1.19 MG/DL (0.55-1.30)
[2023-02-08] MEDS ORDERED: DULO1CAP6 PO (17:06)
[2023-02-08] MEDS ORDERED: BASA100I PO ×4 (17:06→17:58)
[2023-02-08] MEDS ORDERED: BACL1TAB9 PO (17:06)
[2023-02-08] MEDS ORDERED: VYVA70CA3 PO (17:06)
[2023-02-08] MEDS ORDERED: SENN-52 PO (17:06)
[2023-02-08] MEDS ORDERED: DOCU100C16 PO (17:06)
[2023-02-08] MEDS ORDERED: GABA600T4 PO (17:06)
[2023-02-08] MEDS ORDERED: RISATAB3 PO (17:06)
[2023-02-08] MEDS ORDERED: LINE1TAB6 PO (17:09)
[2023-02-08] MEDS ORDERED: ADME100I SC ×3 (17:54→19:50)
[2023-02-08] MEDS ORDERED: BLOOKIT21 XX (17:58)
[2023-02-08] MEDS ORDERED: INSU1MIS20 SC (17:58)
[2023-02-08] MEDS ORDERED: LANC30MI XX (17:58)
[2023-02-08] MEDS ORDERED: PEN-308 SC (17:58)
[2023-02-08] MEDS ORDERED: GLUC1TES2 XX (17:58)
[2023-02-08] MEDS ORDERED: ALCOPAD25 TOP (17:58)
[2023-02-08 20:00] VITALS: BP 93/52; TEMP 97.9; O2SAT 98
[2023-02-08 20:15] VITALS: BP 94/58; TEMP 97.6
[2023-02-08] MEDS: DULoxetine 30MG CAPSULE (CYMBALTA) PO SCH (20:22)
[2023-02-08] MEDS: SENOKOT S TAB PO SCH (21:00)
[2023-02-08 22:45] VITALS: BP 104/60
[2023-02-09 00:03] VITALS: BP 122/70; TEMP 96.8
[2023-02-09 05:12] VITALS: BP 125/71; TEMP 97.9; O2SAT 94
[2023-02-09] MEDS: INSULIN LISPRO (NovoLOG) PER UNIT SC SCH ×8 (06:42→23:19)
[2023-02-09 07:16] LABS: ALBUMIN 2.2 G/DL (3.2-5.2)
[2023-02-09 07:23] LABS: ACETONE/KETONE 0.35 MMOL/L (0.02-0.27)
[2023-02-09] MEDS: METHADONE 10MG TAB PO SCH (08:22)
[2023-02-09] MEDS: GABAPENTIN 300 MG CAP PO SCH ×3 (08:22→21:16)
[2023-02-09] MEDS: MOM 30ML SUSPENSION UDC PO SCH (08:22)
[2023-02-09] MEDS: LINEZOLID 600MG TABLET (ZYVOX) PO SCH ×2 (08:22→21:16)
[2023-02-09] MEDS: LACTOBACILLUS ACIDOPHILUS CAP (BACID) PO SCH ×2 (08:22→17:08)
[2023-02-09] MEDS: ENOXAPARIN 40MG/0.4ML SYRINGE (J1650 PER 10MG) SC SCH (08:23)
[2023-02-09] MEDS: LEVEMIR (INSULIN DETEMIR) 1 UNITS/0.01ML SC SCH (08:23)
[2023-02-09] MEDS ORDERED: LINE1TAB6 PO (10:49)
[2023-02-09] MEDS ORDERED: LANTINJ4 SC (10:49)
[2023-02-09 14:00] VITALS: BP_SYST 122; BP_DIAS 68; BP_DIAS 98; TEMP 97.5; O2SAT 94
[2023-02-09 20:00] VITALS: BP 100/60; TEMP 98.6; O2SAT 97
[2023-02-09] MEDS: SENOKOT S TAB PO SCH (21:00)
[2023-02-09] MEDS: DULoxetine 30MG CAPSULE (CYMBALTA) PO SCH (21:16)
[2023-02-10 05:54] VITALS: BP 120/61; TEMP 97; O2SAT 97
[2023-02-10 07:45] VITALS: BP 120/64; TEMP 97.3; O2SAT 96
[2023-02-10] MEDS: LEVEMIR (INSULIN DETEMIR) 1 UNITS/0.01ML SC SCH (08:36)
[2023-02-10] MEDS: GABAPENTIN 300 MG CAP PO SCH (08:37)
[2023-02-10] MEDS: LACTOBACILLUS ACIDOPHILUS CAP (BACID) PO SCH (08:37)
[2023-02-10] MEDS: METHADONE 10MG TAB PO SCH (08:37)
[2023-02-10] MEDS: LINEZOLID 600MG TABLET (ZYVOX) PO SCH (08:37)
[2023-02-10] MEDS: INSULIN LISPRO (NovoLOG) PER UNIT SC SCH ×4 (08:37→12:32)
[2023-02-10] MEDS: MOM 30ML SUSPENSION UDC PO SCH (08:38)
[2023-02-10] MEDS: ENOXAPARIN 40MG/0.4ML SYRINGE (J1650 PER 10MG) SC SCH (08:38)
== END 2023-02-10 13:53 | disposition home health service (06) | DRG 317 ==
LOC: M ED 02:08 → M ED INP 07:38 → M MS4PR 11:16 → M MSPAV 01-29 09:45
PROVIDERS: ADMIT Internal Medicine Nephrology; ATTEND Student in an Organized Health Care Education/Training Program
PROC: 0KBW0ZZ Excision of Left Foot Muscle, Open Approach (ICD-10-PCS; principal; 2023-01-25 16:00)
PROC: 0KDW0ZZ Extraction of Left Foot Muscle, Open Approach (ICD-10-PCS; 2023-01-28)
DX: M72.6 Necrotizing fasciitis (principal); A48.0 Gas gangrene; E10.40 Type 1 diabetes mellitus with diabetic neuropathy, unspecified; E10.621 Type 1 diabetes mellitus with foot ulcer; F50.81 Binge eating disorder; E10.65 Type 1 diabetes mellitus with hyperglycemia; L97.523 Non-pressure chronic ulcer of other part of left foot with necrosis of muscle; F32.A Depression, unspecified; B19.20 Unspecified viral hepatitis C without hepatic coma; F11.10 Opioid abuse, uncomplicated; F17.200 Nicotine dependence, unspecified, uncomplicated; K59.00 Constipation, unspecified; B95.2 Enterococcus as the cause of diseases classified elsewhere; Z89.022 Acquired absence of left finger(s); Z79.4 Long term (current) use of insulin; Z79.899 Other long term (current) drug therapy

== ENCOUNTER 2023-02-12 13:52 | Emergency (ER) | payer OTHER ==
[~2023-02-12] VITALS: Ht 157.5 cm; Wt 48.4 kg
[~2023-02-12 13:52] MED LIST changes: +ALCOPAD25 TOP; +BLOOKIT21 XX; +DOCU100C16 PO; +DULO1CAP6 PO; +GLUC1TES2 XX; +INSU1MIS20 SC; +LANC30MI XX; +LANTINJ4 SC; +LINE1TAB6 PO; +METH10CO PO; +PEN-308 SC; +RISATAB3 PO; +SENN-52 PO; +VYVA70CA3 PO
[2023-02-12 17:13] VITALS: BP 131/68; TEMP 98.1; O2SAT 98
== END 2023-02-12 17:18 | disposition home or self-care (01) ==
LOC: M ED 13:52
DX: Z48.00 Encounter for change or removal of nonsurgical wound dressing (principal); E11.9 Type 2 diabetes mellitus without complications; F19.10 Other psychoactive substance abuse, uncomplicated; Z86.19 Personal history of other infectious and parasitic diseases; Z79.899 Other long term (current) drug therapy; Z88.0 Allergy status to penicillin

== ENCOUNTER 2023-02-17 17:02 | Inpatient (IN) | payer OTHER ==
[~2023-02-17] VITALS: Ht 157.5 cm; Wt 48.9 kg
[2023-02-17 18:25] LABS: BASO % 0.4 % (0.0-1.0); EOS # 0.1 10^3/uL (0.0-0.5); EOS % 1.2 % (0.0-3.0); HEMATOCRIT 25.9 % (36.0-47.0); HEMOGLOBIN 8.2 g/dl (12.0-15.5); LYMPH # 3.1 10^3/uL (1.5-5.0); LYMPH % 30.1 % (24.0-44.0); MEAN CORPUSCULAR HEMOGLOBIN 28.4 pg (27.0-33.0); MEAN CORPUSCULAR HGB CONC 31.7 g/dl (32.0-36.5); MEAN CORPUSCULAR VOLUME 89.6 fl (80.0-96.0); MONO % 9.4 % (2.0-8.0); NEUTROPHILS # 5.9 10^3/uL (1.5-8.5); NEUTROPHILS % 56.6 % (36.0-66.0); PLATELET COUNT, AUTOMATED 466 10^3/uL (150-450); RED BLOOD COUNT 2.89 10^6/uL (4.00-5.40); WHITE BLOOD COUNT 10.4 10^3/uL (4.0-10.0)
[2023-02-17 18:36] LABS: ERYTHROCYTE SEDIMENTATION RATE 74 mm/hr (0-20)
[2023-02-17 18:38] LABS: INR 1.08; PROTHROMBIN TIME 13.7 SECONDS (12.5-14.5)
[2023-02-17 18:39] LABS: PARTIAL THROMBOPLASTIN TIME 35.8 SECONDS (24.8-34.2)
[2023-02-17 18:50] LABS: ALBUMIN 2.7 G/DL (3.2-5.2); ALKALINE PHOSPHATASE 181 U/L (46-116); ALT/SGPT 13 U/L (7.0-40); AST/SGOT 19 U/L (<34); BILIRUBIN,DIRECT < 0.1 MG/DL (<0.4); BILIRUBIN,TOTAL < 0.2 MG/DL (0.3-1.2); BLOOD UREA NITROGEN 22 MG/DL (9-23); CALCIUM LEVEL 8.8 MG/DL (8.5-10.1); CARBON DIOXIDE LEVEL 30 MMOL/L (20-31); CHLORIDE LEVEL 99 MMOL/L (98-107); CREATININE FOR GFR 1.23 MG/DL (0.55-1.30); GLUCOSE, FASTING 150 MG/DL (60-100); POTASSIUM SERUM 4.6 MMOL/L (3.5-5.1); SODIUM LEVEL 134 MMOL/L (136-145); TOTAL PROTEIN 7.8 G/DL (5.7-8.2)
[2023-02-17 19:25] LABS: RSV AMPLIFICATION NEGATIVE (NEGATIVE)
[2023-02-17] MEDS ORDERED: DEXTROSE 50% 50ML SYRINGE IV PRN (20:35)
[2023-02-17] MEDS ORDERED: GLUCAGON INJ 1MG VIAL SC PRN (20:35)
[2023-02-17] MEDS ORDERED: MORPHINE 4 MG/ML 1ML VIAL IV PRN (20:35)
[2023-02-17] MEDS ORDERED: MOM 30ML SUSPENSION UDC PO PRN (20:35)
[2023-02-17] MEDS ORDERED: GLUCOSE 4GM CHEW TABLET PO PRN (20:35)
[2023-02-17] MEDS: INSULIN LISPRO (NovoLOG) PER UNIT SC SCH (21:00)
[2023-02-17] MEDS ORDERED: KETOROLAC 30 MG/ML 1ML VIAL IV PRN (21:15)
[2023-02-17] MEDS ORDERED: BACL1TAB9 PO (21:18)
[2023-02-17] MEDS ORDERED: DOCU100C16 PO (21:18)
[2023-02-17] MEDS ORDERED: GABA600T4 PO (21:18)
[2023-02-17] MEDS ORDERED: SENN1TAB41 PO (21:18)
[2023-02-17] MEDS ORDERED: ADME100I SC (21:18)
[2023-02-17] MEDS ORDERED: DULO60CA35 PO (21:18)
[2023-02-17] MEDS ORDERED: RISATAB3 PO (21:18)
[2023-02-17] MEDS ORDERED: LANTINJ4 SC (21:18)
[2023-02-17] MEDS ORDERED: VYVA70CA3 PO (21:18)
[2023-02-17] MEDS ORDERED: METH10CO PO (21:18)
[2023-02-17] MEDS ORDERED: MED REC IN PROGRESS XX SCH (21:20)
[2023-02-17] MEDS: GABAPENTIN 300 MG CAP PO SCH (21:41)
[2023-02-17] MEDS: DULoxetine 30MG CAPSULE (CYMBALTA) PO SCH (21:41)
[2023-02-17] MEDS: LEVEMIR (INSULIN DETEMIR) 1 UNITS/0.01ML SC SCH (21:42)
[2023-02-17 23:30] VITALS: BP 110/58; TEMP 97.9; O2SAT 97
[2023-02-18] VITALS (10 sets, daily range): BP systolic 112–143; BP diastolic 62–87; TEMP 97.5–98.1; O2SAT 93–98
[2023-02-18 05:47] LABS: MEAN CORPUSCULAR HEMOGLOBIN 28.1 pg (27.0-33.0); MEAN CORPUSCULAR HGB CONC 31.4 g/dl (32.0-36.5); MEAN CORPUSCULAR VOLUME 89.4 fl (80.0-96.0); PLATELET COUNT, AUTOMATED 413 10^3/uL (150-450); RED BLOOD COUNT 2.35 10^6/uL (4.00-5.40)
[2023-02-18 06:06] LABS: BLOOD UREA NITROGEN 21 MG/DL (9-23); CALCIUM LEVEL 7.9 MG/DL (8.5-10.1); CARBON DIOXIDE LEVEL 32 MMOL/L (20-31); CHLORIDE LEVEL 97 MMOL/L (98-107); GLOMERULAR FILTRATION RATE > 60.0 (>58); GLUCOSE, FASTING 397 MG/DL (60-100); POTASSIUM SERUM 4.7 MMOL/L (3.5-5.1); SODIUM LEVEL 132 MMOL/L (136-145)
[2023-02-18 06:22] LABS: HEMOGLOBIN 6.6 g/dl (12.0-15.5)
[2023-02-18 07:09] LABS: HEMATOCRIT 21.7 % (36.0-47.0)
[2023-02-18] MEDS: GABAPENTIN 300 MG CAP PO SCH ×3 (09:28→21:54)
[2023-02-18] MEDS: INSULIN LISPRO (NovoLOG) PER UNIT SC SCH ×4 (09:28→21:54)
[2023-02-18 09:45] LABS: FERRITIN 102.4 NG/ML (7.3-270.7); VITAMIN B12 LEVEL 652 PG/ML (211-911)
[2023-02-18 09:49] LABS: IRON (FE) 9 UG/DL (50-170); PERCENT SATURATION 3.8 % (13.2-45.0); TOTAL IRON BINDING CAPACITY 234 UG/DL (250-425)
[2023-02-18] MEDS: ENOXAPARIN 40MG/0.4ML SYRINGE (J1650 PER 10MG) SC SCH (12:21)
[2023-02-18] MEDS ORDERED: DOCUSATE SODIUM 100MG CAPSULE PO PRN (18:20)
[2023-02-18 19:07] LABS: HEMOGLOBIN 10.4 g/dl (12.0-15.5)
[2023-02-18] MEDS ORDERED: METHADONE 10MG TAB PO SCH (20:00)
[2023-02-18] MEDS: LINEZOLID 600MG TABLET (ZYVOX) PO SCH (21:54)
[2023-02-18] MEDS: DULoxetine 30MG CAPSULE (CYMBALTA) PO SCH (21:54)
[2023-02-18] MEDS: LEVEMIR (INSULIN DETEMIR) 1 UNITS/0.01ML SC SCH (21:55)
[2023-02-19 06:01] VITALS: BP 139/78; TEMP 97.5; O2SAT 96
[2023-02-19 06:42] LABS: BASO % 0.2 % (0.0-1.0); EOS # 0.2 10^3/uL (0.0-0.5); EOS % 1.8 % (0.0-3.0); HEMATOCRIT 31.5 % (36.0-47.0); HEMOGLOBIN 10.5 g/dl (12.0-15.5); LYMPH # 2.9 10^3/uL (1.5-5.0); LYMPH % 35.5 % (24.0-44.0); MEAN CORPUSCULAR HEMOGLOBIN 30.3 pg (27.0-33.0); MEAN CORPUSCULAR HGB CONC 33.3 g/dl (32.0-36.5); MEAN CORPUSCULAR VOLUME 90.8 fl (80.0-96.0); MONO # 0.6 10^3/uL (0.0-0.8); MONO % 7.2 % (2.0-8.0); NEUTROPHILS # 4.4 10^3/uL (1.5-8.5); NEUTROPHILS % 53.3 % (36.0-66.0); PLATELET COUNT, AUTOMATED 425 10^3/uL (150-450); RED BLOOD COUNT 3.47 10^6/uL (4.00-5.40); WHITE BLOOD COUNT 8.2 10^3/uL (4.0-10.0)
[2023-02-19 07:06] LABS: BLOOD UREA NITROGEN 15 MG/DL (9-23); CALCIUM LEVEL 8.4 MG/DL (8.5-10.1); CARBON DIOXIDE LEVEL 30 MMOL/L (20-31); CHLORIDE LEVEL 100 MMOL/L (98-107); CREATININE FOR GFR 0.76 MG/DL (0.55-1.30); GLOMERULAR FILTRATION RATE > 60.0 (>58); GLUCOSE, FASTING 139 MG/DL (60-100); POTASSIUM SERUM 4.7 MMOL/L (3.5-5.1); SODIUM LEVEL 135 MMOL/L (136-145)
[2023-02-19] MEDS: ENOXAPARIN 40MG/0.4ML SYRINGE (J1650 PER 10MG) SC SCH (07:56)
[2023-02-19] MEDS: INSULIN LISPRO (NovoLOG) PER UNIT SC SCH ×4 (07:56→21:00)
[2023-02-19] MEDS: METHADONE 10MG TAB PO SCH (07:56)
[2023-02-19] MEDS: GABAPENTIN 300 MG CAP PO SCH ×3 (07:57→21:58)
[2023-02-19] MEDS: LINEZOLID 600MG TABLET (ZYVOX) PO SCH ×2 (07:57→21:58)
[2023-02-19] MEDS: FERROUS SULFATE 325MG TAB PO SCH ×2 (12:21→21:58)
[2023-02-19] MEDS: DULoxetine 30MG CAPSULE (CYMBALTA) PO SCH (21:58)
[2023-02-19] MEDS: LEVEMIR (INSULIN DETEMIR) 1 UNITS/0.01ML SC SCH (21:59)
[2023-02-19] MEDS: ACETAMINOPHEN TAB 650MG DOSE (2X325MG) PO PRN (22:00)
[2023-02-20 06:25] VITALS: BP 139/79; TEMP 97.3; O2SAT 95
[2023-02-20] MEDS: ENOXAPARIN 40MG/0.4ML SYRINGE (J1650 PER 10MG) SC SCH (09:50)
[2023-02-20] MEDS: INSULIN LISPRO (NovoLOG) PER UNIT SC SCH ×4 (09:51→21:00)
[2023-02-20] MEDS: GABAPENTIN 300 MG CAP PO SCH ×3 (09:53→21:15)
[2023-02-20] MEDS: METHADONE 10MG TAB PO SCH (09:53)
[2023-02-20] MEDS: FERROUS SULFATE 325MG TAB PO SCH ×2 (09:53→21:14)
[2023-02-20] MEDS: LINEZOLID 600MG TABLET (ZYVOX) PO SCH ×2 (09:57→21:14)
[2023-02-20] MEDS: LevoFLOXacin 750 MG TABLET PO SCH (16:57)
[2023-02-20] MEDS: LACTOBACILLUS ACIDOPHILUS CAP (BACID) PO SCH ×2 (16:59→21:14)
[2023-02-20 19:53] VITALS: BP 139/80; TEMP 97.9; O2SAT 96
[2023-02-20] MEDS: DULoxetine 30MG CAPSULE (CYMBALTA) PO SCH (21:14)
[2023-02-20] MEDS: ACETAMINOPHEN TAB 650MG DOSE (2X325MG) PO PRN (21:14)
[2023-02-20] MEDS: LEVEMIR (INSULIN DETEMIR) 1 UNITS/0.01ML SC SCH (21:14)
[2023-02-21 06:00] VITALS: BP 147/81; TEMP 97.5; O2SAT 95
[2023-02-21] MEDS: LevoFLOXacin 750 MG TABLET PO SCH (06:26)
[2023-02-21] MEDS: ENOXAPARIN 40MG/0.4ML SYRINGE (J1650 PER 10MG) SC SCH (08:24)
[2023-02-21] MEDS: GABAPENTIN 300 MG CAP PO SCH ×3 (08:24→20:52)
[2023-02-21] MEDS: LINEZOLID 600MG TABLET (ZYVOX) PO SCH ×2 (08:24→20:52)
[2023-02-21] MEDS: LACTOBACILLUS ACIDOPHILUS CAP (BACID) PO SCH ×4 (08:24→20:52)
[2023-02-21] MEDS: METHADONE 10MG TAB PO SCH (08:25)
[2023-02-21] MEDS: INSULIN LISPRO (NovoLOG) PER UNIT SC SCH ×4 (08:25→20:53)
[2023-02-21] MEDS: FERROUS SULFATE 325MG TAB PO SCH ×2 (08:25→20:52)
[2023-02-21 14:00] VITALS: BP 137/80; TEMP 97.7; O2SAT 98
[2023-02-21] MEDS: ACETAMINOPHEN TAB 650MG DOSE (2X325MG) PO PRN (15:38)
[2023-02-21] MEDS: SENOKOT S TAB PO PRN (17:28)
[2023-02-21 20:00] VITALS: BP 120/71; TEMP 97.9; O2SAT 95
[2023-02-21] MEDS: DULoxetine 30MG CAPSULE (CYMBALTA) PO SCH (20:52)
[2023-02-21] MEDS: LEVEMIR (INSULIN DETEMIR) 1 UNITS/0.01ML SC SCH (20:53)
[2023-02-22] MEDS: LevoFLOXacin 750 MG TABLET PO SCH (05:45)
[2023-02-22 05:47] VITALS: BP 143/85; TEMP 97.9; O2SAT 93
[2023-02-22] MEDS: LINEZOLID 600MG TABLET (ZYVOX) PO SCH (09:04)
[2023-02-22] MEDS: GABAPENTIN 300 MG CAP PO SCH ×3 (09:04→20:26)
[2023-02-22] MEDS: LACTOBACILLUS ACIDOPHILUS CAP (BACID) PO SCH ×4 (09:04→20:26)
[2023-02-22] MEDS: FERROUS SULFATE 325MG TAB PO SCH ×2 (09:04→20:26)
[2023-02-22] MEDS: METHADONE 10MG TAB PO SCH (09:06)
[2023-02-22] MEDS: ENOXAPARIN 40MG/0.4ML SYRINGE (J1650 PER 10MG) SC SCH (09:06)
[2023-02-22] MEDS: INSULIN LISPRO (NovoLOG) PER UNIT SC SCH ×4 (09:07→20:27)
[2023-02-22] MEDS: SENOKOT S TAB PO PRN (17:44)
[2023-02-22] MEDS: LEVEMIR (INSULIN DETEMIR) 1 UNITS/0.01ML SC SCH (20:27)
[2023-02-22] MEDS: DULoxetine 30MG CAPSULE (CYMBALTA) PO SCH (20:27)
[2023-02-22 22:00] VITALS: BP 124/74; TEMP 97.9; O2SAT 95
[2023-02-23 05:15] VITALS: BP 115/74; TEMP 97.9; O2SAT 95
[2023-02-23] MEDS: LevoFLOXacin 750 MG TABLET PO SCH (06:24)
[2023-02-23] MEDS: METHADONE 10MG TAB PO SCH (09:40)
[2023-02-23] MEDS: GABAPENTIN 300 MG CAP PO SCH ×3 (09:40→20:42)
[2023-02-23] MEDS: ENOXAPARIN 40MG/0.4ML SYRINGE (J1650 PER 10MG) SC SCH (09:40)
[2023-02-23] MEDS: LACTOBACILLUS ACIDOPHILUS CAP (BACID) PO SCH ×4 (09:40→20:42)
[2023-02-23] MEDS: FERROUS SULFATE 325MG TAB PO SCH ×2 (09:40→20:43)
[2023-02-23] MEDS: INSULIN LISPRO (NovoLOG) PER UNIT SC SCH ×4 (09:40→20:42)
[2023-02-23 11:22] VITALS: BP 134/87; TEMP 97.3; O2SAT 97
[2023-02-23 16:11] VITALS: BP 128/66; TEMP 96.6; O2SAT 99
[2023-02-23] MEDS: ACETAMINOPHEN TAB 650MG DOSE (2X325MG) PO PRN (17:38)
[2023-02-23 20:21] VITALS: BP 126/68; TEMP 97.5; O2SAT 98
[2023-02-23] MEDS: LEVEMIR (INSULIN DETEMIR) 1 UNITS/0.01ML SC SCH (20:41)
[2023-02-23] MEDS: DULoxetine 30MG CAPSULE (CYMBALTA) PO SCH (20:43)
[2023-02-24] MEDS: LevoFLOXacin 750 MG TABLET PO SCH (05:57)
[2023-02-24 06:00] VITALS: BP 126/68; TEMP 97.5; O2SAT 94
[2023-02-24 06:01] LABS: BASO # 0.1 10^3/uL (0.0-0.2); BASO % 0.8 % (0.0-1.0); EOS # 0.4 10^3/uL (0.0-0.5); EOS % 4.4 % (0.0-3.0); HEMATOCRIT 35.8 % (36.0-47.0); HEMOGLOBIN 11.3 g/dl (12.0-15.5); LYMPH # 3.6 10^3/uL (1.5-5.0); LYMPH % 40.9 % (24.0-44.0); MEAN CORPUSCULAR HEMOGLOBIN 29.4 pg (27.0-33.0); MEAN CORPUSCULAR HGB CONC 31.6 g/dl (32.0-36.5); MEAN CORPUSCULAR VOLUME 93.2 fl (80.0-96.0); MONO # 0.6 10^3/uL (0.0-0.8); NEUTROPHILS # 4.1 10^3/uL (1.5-8.5); NEUTROPHILS % 45.9 % (36.0-66.0); PLATELET COUNT, AUTOMATED 502 10^3/uL (150-450); RED BLOOD COUNT 3.84 10^6/uL (4.00-5.40); WHITE BLOOD COUNT 8.9 10^3/uL (4.0-10.0)
[2023-02-24 06:25] LABS: C REACTIVE PROTEIN QUANTITATIV 2.4 MG/DL (<1.0)
[2023-02-24 06:26] LABS: CALCIUM LEVEL 8.8 MG/DL (8.5-10.1); CREATININE FOR GFR 1.17 MG/DL (0.55-1.30); POTASSIUM SERUM 5.1 MMOL/L (3.5-5.1)
[2023-02-24] MEDS: INSULIN LISPRO (NovoLOG) PER UNIT SC SCH ×4 (08:51→20:39)
[2023-02-24] MEDS: METHADONE 10MG TAB PO SCH (08:52)
[2023-02-24] MEDS: GABAPENTIN 300 MG CAP PO SCH ×3 (08:52→20:40)
[2023-02-24] MEDS: LACTOBACILLUS ACIDOPHILUS CAP (BACID) PO SCH ×4 (08:52→20:40)
[2023-02-24] MEDS: ENOXAPARIN 40MG/0.4ML SYRINGE (J1650 PER 10MG) SC SCH (08:53)
[2023-02-24] MEDS: FERROUS SULFATE 325MG TAB PO SCH ×2 (08:53→20:40)
[2023-02-24 17:49] VITALS: BP 130/69; TEMP 97.7; O2SAT 92
[2023-02-24] MEDS: LEVEMIR (INSULIN DETEMIR) 1 UNITS/0.01ML SC SCH (20:40)
[2023-02-24] MEDS: DULoxetine 30MG CAPSULE (CYMBALTA) PO SCH (20:40)
[2023-02-24 22:00] VITALS: BP 140/88; TEMP 97.7; O2SAT 95
[2023-02-25] MEDS: LevoFLOXacin 750 MG TABLET PO SCH (05:45)
[2023-02-25 05:53] VITALS: BP 123/56; TEMP 97.2; O2SAT 95
[2023-02-25] MEDS ORDERED: FERR1TAB8 PO (07:15)
[2023-02-25] MEDS ORDERED: LEVO1TAB40 PO (07:15)
[2023-02-25] MEDS ORDERED: GABA-282 PO (07:15)
[2023-02-25] MEDS ORDERED: RISATAB3 PO (07:15)
[2023-02-25] MEDS: INSULIN LISPRO (NovoLOG) PER UNIT SC SCH ×2 (08:47→11:35)
[2023-02-25] MEDS: LACTOBACILLUS ACIDOPHILUS CAP (BACID) PO SCH (08:47)
[2023-02-25] MEDS: FERROUS SULFATE 325MG TAB PO SCH (08:47)
[2023-02-25] MEDS: GABAPENTIN 300 MG CAP PO SCH (08:47)
[2023-02-25] MEDS: METHADONE 10MG TAB PO SCH (08:48)
[2023-02-25] MEDS: ENOXAPARIN 40MG/0.4ML SYRINGE (J1650 PER 10MG) SC SCH (08:49)
== END 2023-02-25 12:13 | disposition home health service (06) | DRG 380 ==
LOC: M ED 17:02 → M ED INP 20:34 → M MSPAV 22:58
PROVIDERS: ADMIT Internal Medicine; ATTEND Internal Medicine
PROC: 30233N1 Transfusion of Nonautologous Red Blood Cells into Peripheral Vein, Percutaneous Approach (ICD-10-PCS; principal; 2023-02-18)
DX: E10.628 Type 1 diabetes mellitus with other skin complications (principal); E10.40 Type 1 diabetes mellitus with diabetic neuropathy, unspecified; E10.621 Type 1 diabetes mellitus with foot ulcer; L97.528 Non-pressure chronic ulcer of other part of left foot with other specified severity; E10.65 Type 1 diabetes mellitus with hyperglycemia; F17.200 Nicotine dependence, unspecified, uncomplicated; D50.9 Iron deficiency anemia, unspecified; F50.81 Binge eating disorder; F32.A Depression, unspecified; L08.89 Other specified local infections of the skin and subcutaneous tissue; B96.1 Klebsiella pneumoniae [K. pneumoniae] as the cause of diseases classified elsewhere; B96.5 Pseudomonas (aeruginosa) (mallei) (pseudomallei) as the cause of diseases classified elsewhere; Z89.022 Acquired absence of left finger(s); Z79.4 Long term (current) use of insulin; Z79.899 Other long term (current) drug therapy; Z88.0 Allergy status to penicillin

== ENCOUNTER 2023-03-09 01:43 | Inpatient (IN) | payer OTHER ==
[~2023-03-09] VITALS: Ht 157.5 cm; Wt 49.5 kg
[~2023-03-09 01:43] MED LIST changes: +DULO60CA35 PO; +FERR1TAB8 PO; +GABA-282 PO; +LEVO1TAB40 PO; +SENN1TAB41 PO
[2023-03-09] MEDS ORDERED: LEVEMIR (INSULIN DETEMIR) 1 UNITS/0.01ML SC SCH (09:00)
[2023-03-09] MEDS ORDERED: DULoxetine 30MG CAPSULE (CYMBALTA) PO SCH (09:00)
[2023-03-09] MEDS ORDERED: CEFEPIME HCL 2 GM in D5W MINI-BAG PLUS 50 ML IV ONE (10:00)
[2023-03-09] MEDS ORDERED: VANCOMYCIN HCL 1,000 MG, VIAL MATE ADAPTER 1 EACH in D5W 250 ML IV ONE (10:00)
[2023-03-09] MEDS ORDERED: MORPHINE 4 MG/ML 1ML VIAL IV ONE (10:05)
[2023-03-09 10:25] LABS: BASO # 0.1 10^3/uL (0.0-0.2); BASO % 0.5 % (0.0-1.0); EOS # 0.2 10^3/uL (0.0-0.5); EOS % 1.7 % (0.0-3.0); HEMATOCRIT 33.5 % (36.0-47.0); HEMOGLOBIN 10.6 g/dl (12.0-15.5); LYMPH # 3.1 10^3/uL (1.5-5.0); LYMPH % 27.3 % (24.0-44.0); MEAN CORPUSCULAR HEMOGLOBIN 29.4 pg (27.0-33.0); MEAN CORPUSCULAR HGB CONC 31.6 g/dl (32.0-36.5); MEAN CORPUSCULAR VOLUME 92.8 fl (80.0-96.0); MONO % 8.4 % (2.0-8.0); NEUTROPHILS # 6.9 10^3/uL (1.5-8.5); NEUTROPHILS % 61.5 % (36.0-66.0); PLATELET COUNT, AUTOMATED 456 10^3/uL (150-450); RED BLOOD COUNT 3.61 10^6/uL (4.00-5.40); WHITE BLOOD COUNT 11.3 10^3/uL (4.0-10.0)
[2023-03-09 10:43] LABS: ERYTHROCYTE SEDIMENTATION RATE 114 mm/hr (0-20)
[2023-03-09 10:46] LABS: BLOOD UREA NITROGEN 32 MG/DL (9-23); CALCIUM LEVEL 8.8 MG/DL (8.5-10.1); CARBON DIOXIDE LEVEL 29 MMOL/L (20-31); CHLORIDE LEVEL 98 MMOL/L (98-107); CREATININE FOR GFR 0.96 MG/DL (0.55-1.30); GLOMERULAR FILTRATION RATE > 60.0 (>58); GLUCOSE, FASTING 371 MG/DL (60-100); POTASSIUM SERUM 4.6 MMOL/L (3.5-5.1); SODIUM LEVEL 132 MMOL/L (136-145)
[2023-03-09] MEDS ORDERED: MED REC IN PROGRESS XX SCH (10:50)
[2023-03-09 10:59] LABS: RSV AMPLIFICATION NEGATIVE (NEGATIVE)
[2023-03-09] MEDS ORDERED: HOME MED LIST COMPLETE! XX SCH (11:30)
[2023-03-09] MEDS ORDERED: VANCOMYCIN HCL 750 MG, VIAL MATE ADAPTER 1 EACH in D5W 250 ML IV SCH (11:35)
[2023-03-09] MEDS ORDERED: DOCUSATE SODIUM 100MG CAPSULE PO PRN (11:35)
[2023-03-09] MEDS ORDERED: SENOKOT S TAB PO PRN (11:35)
[2023-03-09] MEDS ORDERED: ACETAMINOPHEN TAB 650MG DOSE (2X325MG) PO PRN (11:35)
[2023-03-09] MEDS ORDERED: PIPERACILLIN/TAZOBACTAM SOD 3.375 GM in D5W MINI-BAG PLUS 50 ML IV SCH (11:35)
[2023-03-09] MEDS ORDERED: GLUCOSE 4GM CHEW TABLET PO PRN (11:55)
[2023-03-09] MEDS ORDERED: GLUCAGON INJ 1MG VIAL SC PRN (11:55)
[2023-03-09] MEDS ORDERED: DEXTROSE 50% 50ML SYRINGE IV PRN (11:55)
[2023-03-09 12:36] LABS: PROCALCITONIN 0.13 ng/ml
[2023-03-09] MEDS ORDERED: PROHANCE 279.3MG/ML 15ML VIAL As Ordered ONE (13:32)
[2023-03-09] MEDS: INSULIN LISPRO (NovoLOG) PER UNIT SC SCH ×5 (14:16→21:11)
[2023-03-09 14:32] VITALS: BP 127/72; TEMP 97.2; O2SAT 97
[2023-03-09] MEDS: HEPARIN SOD (PORCINE) 5000UNITS/ML 1ML VIAL/SYRINGE SC SCH ×2 (14:58→21:45)
[2023-03-09] MEDS: FERROUS SULFATE 325MG TAB PO SCH ×2 (14:59→21:44)
[2023-03-09] MEDS: GABAPENTIN 300 MG CAP PO SCH ×2 (15:02→21:44)
[2023-03-09] MEDS: METHADONE 10MG TAB PO SCH (15:03)
[2023-03-09] MEDS: LACTOBACILLUS ACIDOPHILUS CAP (BACID) PO SCH (18:04)
[2023-03-09] MEDS: MORPHINE 2 MG/ML 1ML VIAL IV PRN (18:04)
[2023-03-09] MEDS ORDERED: DEXTROSE 50% 50ML VIAL IV STA (20:47)
[2023-03-09] MEDS ORDERED: DEXTROSE 50% 50ML SYRINGE IV STA (20:54)
[2023-03-09] MEDS: CEFEPIME HCL 2 GM in D5W MINI-BAG PLUS 50 ML IV SCH (21:45)
[2023-03-09 21:53] VITALS: BP 124/68; TEMP 97.3; O2SAT 98
[2023-03-09] MEDS: VANCOMYCIN HCL 500 MG in D5W MINI-BAG PLUS 100 ML IV SCH (22:59)
[2023-03-10] MEDS: HEPARIN SOD (PORCINE) 5000UNITS/ML 1ML VIAL/SYRINGE SC SCH (05:55)
[2023-03-10 05:59] VITALS: BP 131/76; TEMP 97.2; O2SAT 98
[2023-03-10 06:07] LABS: BASO # 0.1 10^3/uL (0.0-0.2); BASO % 0.6 % (0.0-1.0); EOS # 0.3 10^3/uL (0.0-0.5); EOS % 4.3 % (0.0-3.0); HEMATOCRIT 30.3 % (36.0-47.0); HEMOGLOBIN 9.7 g/dl (12.0-15.5); LYMPH % 24.9 % (24.0-44.0); MEAN CORPUSCULAR HEMOGLOBIN 29.6 pg (27.0-33.0); MEAN CORPUSCULAR VOLUME 92.4 fl (80.0-96.0); MONO # 0.7 10^3/uL (0.0-0.8); MONO % 8.9 % (2.0-8.0); NEUTROPHILS # 4.8 10^3/uL (1.5-8.5); NEUTROPHILS % 60.5 % (36.0-66.0); PLATELET COUNT, AUTOMATED 412 10^3/uL (150-450); RED BLOOD COUNT 3.28 10^6/uL (4.00-5.40); WHITE BLOOD COUNT 7.9 10^3/uL (4.0-10.0)
[2023-03-10 06:31] LABS: BLOOD UREA NITROGEN 28 MG/DL (9-23); CALCIUM LEVEL 8.3 MG/DL (8.5-10.1); CARBON DIOXIDE LEVEL 30 MMOL/L (20-31); CHLORIDE LEVEL 100 MMOL/L (98-107); GLOMERULAR FILTRATION RATE > 60.0 (>58); GLUCOSE, FASTING 402 MG/DL (60-100); MAGNESIUM LEVEL 2.2 MG/DL (1.8-2.4); POTASSIUM SERUM 4.8 MMOL/L (3.5-5.1); SODIUM LEVEL 135 MMOL/L (136-145)
[2023-03-10] MEDS: LACTOBACILLUS ACIDOPHILUS CAP (BACID) PO SCH ×2 (07:38→17:05)
[2023-03-10] MEDS: INSULIN LISPRO (NovoLOG) PER UNIT SC SCH ×4 (07:38→21:00)
[2023-03-10] MEDS: FERROUS SULFATE 325MG TAB PO SCH ×2 (08:41→21:59)
[2023-03-10] MEDS: GABAPENTIN 300 MG CAP PO SCH ×3 (08:44→22:00)
[2023-03-10] MEDS: METHADONE 10MG TAB PO SCH (08:44)
[2023-03-10] MEDS: LEVEMIR (INSULIN DETEMIR) 1 UNITS/0.01ML SC SCH (08:44)
[2023-03-10] MEDS: CEFEPIME HCL 2 GM in D5W MINI-BAG PLUS 50 ML IV SCH ×2 (09:32→22:42)
[2023-03-10] MEDS ORDERED: INSULIN LISPRO (NovoLOG) PER UNIT SC ONE (09:35)
[2023-03-10] MEDS: NS 1,000 ML IV SCH (09:50)
[2023-03-10] MEDS: VANCOMYCIN HCL 500 MG in D5W MINI-BAG PLUS 100 ML IV SCH (11:25)
[2023-03-10 14:00] VITALS: BP 139/70; TEMP 98.3; O2SAT 93
[2023-03-10] MEDS ORDERED: ROPIvacaine 0.5% 30ML VIAL As Ordered ONE (16:15)
[2023-03-10] MEDS ORDERED: LIDOCAINE PRES-FREE 2% 10ML AMP As Ordered ONE (16:15)
[2023-03-10] MEDS ORDERED: POLYSPORIN TOPICAL OINTMENT 15GM As Ordered ONE (16:15)
[2023-03-10] MEDS ORDERED: NEOSPORIN GU IRRIG 20ML VIAL As Ordered ONE (16:16)
[2023-03-10] MEDS ORDERED: LIDOCAINE 2% 100MG/5ML SDV (FOR ANES.) As Ordered ONE (18:24)
[2023-03-10] MEDS ORDERED: MIDAZOLAM INJ 2MG/2ML VIAL As Ordered ONE (18:24)
[2023-03-10] MEDS ORDERED: dexmedeTOMIDine (4MCG/ML)200MCG/50ML BTL (PRECEDEX) As Ordered ONE (18:24)
[2023-03-10] MEDS ORDERED: propofoL 200 MG/20 ML VIAL As Ordered ONE (18:24)
[2023-03-10] MEDS ORDERED: fentaNYL 100 MCG/2 ML INJECTION As Ordered ONE (18:24)
[2023-03-10] MEDS ORDERED: ACETAMINOPHEN 1000MG 100ML IV BAG As Ordered ONE (18:26)
[2023-03-10] MEDS ORDERED: GENTAMICIN SULF 80MG/2ML VIAL As Ordered ONE (18:37)
[2023-03-10] MEDS ORDERED: TOBRAMYCIN SULF 1.2GM VIAL As Ordered ONE (18:37)
[2023-03-10] MEDS ORDERED: ePHEDrine SULFATE 25 MG/5 ML(5MG/ML) SYRINGE As Ordered ONE (19:45)
[2023-03-10 20:10] VITALS: BP 97/53; TEMP 97.4; O2SAT 96
[2023-03-10] MEDS ORDERED: LR 1,000 ML IV SCH (20:10)
[2023-03-10] MEDS ORDERED: MORPHINE 2 MG/ML 1ML VIAL IV PRN (20:10)
[2023-03-10] MEDS ORDERED: fentaNYL 100 MCG/2 ML INJECTION IV PRN (20:10)
[2023-03-10] MEDS ORDERED: ONDANSETRON 4MG 2ML VIAL IV PRN (20:10)
[2023-03-10] MEDS ORDERED: oxyCODONE 5MG TAB PO PRN (20:10)
[2023-03-10 20:40] VITALS: BP 101/57; TEMP 97.2; O2SAT 95
[2023-03-10] MEDS: DULoxetine 30MG CAPSULE (CYMBALTA) PO SCH (21:59)
[2023-03-10 22:00] VITALS: BP 82/50; TEMP 97.5; O2SAT 98
[2023-03-10 22:00] LABS: BASO # 0.1 10^3/uL (0.0-0.2); BASO % 0.8 % (0.0-1.0); EOS # 0.5 10^3/uL (0.0-0.5); EOS % 6.4 % (0.0-3.0); HEMATOCRIT 26.4 % (36.0-47.0); HEMOGLOBIN 8.2 g/dl (12.0-15.5); LYMPH # 2.7 10^3/uL (1.5-5.0); LYMPH % 34.4 % (24.0-44.0); MEAN CORPUSCULAR HEMOGLOBIN 29.4 pg (27.0-33.0); MEAN CORPUSCULAR HGB CONC 31.1 g/dl (32.0-36.5); MEAN CORPUSCULAR VOLUME 94.6 fl (80.0-96.0); MONO # 0.6 10^3/uL (0.0-0.8); NEUTROPHILS % 50.6 % (36.0-66.0); PLATELET COUNT, AUTOMATED 414 10^3/uL (150-450); RED BLOOD COUNT 2.79 10^6/uL (4.00-5.40); WHITE BLOOD COUNT 7.9 10^3/uL (4.0-10.0)
[2023-03-10] MEDS ORDERED: NS 1,000 ML IV ONE (22:20)
[2023-03-10 23:30] VITALS: BP 113/58; TEMP 97.8; O2SAT 96
[2023-03-11] VITALS (9 sets, daily range): BP systolic 106–125; BP diastolic 57–68; TEMP 96.5–98.2; O2SAT 94–99
[2023-03-11] MEDS: VANCOMYCIN HCL 500 MG in D5W MINI-BAG PLUS 100 ML IV SCH ×3 (00:05→23:52)
[2023-03-11] MEDS: PERCOCET 5MG/325MG TAB PO PRN ×3 (00:07→19:03)
[2023-03-11] MEDS: MORPHINE 2 MG/ML 1ML VIAL IV PRN (01:32)
[2023-03-11] MEDS: NS 1,000 ML IV SCH (04:42)
[2023-03-11 06:48] LABS: BASO % 0.5 % (0.0-1.0); EOS # 0.4 10^3/uL (0.0-0.5); EOS % 4.9 % (0.0-3.0); HEMATOCRIT 25.1 % (36.0-47.0); HEMOGLOBIN 7.7 g/dl (12.0-15.5); LYMPH # 1.6 10^3/uL (1.5-5.0); LYMPH % 19.6 % (24.0-44.0); MEAN CORPUSCULAR HEMOGLOBIN 29.1 pg (27.0-33.0); MEAN CORPUSCULAR HGB CONC 30.7 g/dl (32.0-36.5); MEAN CORPUSCULAR VOLUME 94.7 fl (80.0-96.0); MONO # 0.6 10^3/uL (0.0-0.8); MONO % 7.5 % (2.0-8.0); NEUTROPHILS # 5.6 10^3/uL (1.5-8.5); NEUTROPHILS % 66.7 % (36.0-66.0); PLATELET COUNT, AUTOMATED 402 10^3/uL (150-450); RED BLOOD COUNT 2.65 10^6/uL (4.00-5.40); WHITE BLOOD COUNT 8.3 10^3/uL (4.0-10.0)
[2023-03-11 07:24] LABS: BLOOD UREA NITROGEN 23 MG/DL (9-23); CALCIUM LEVEL 7.9 MG/DL (8.5-10.1); CARBON DIOXIDE LEVEL 29 MMOL/L (20-31); CHLORIDE LEVEL 104 MMOL/L (98-107); CREATININE FOR GFR 0.84 MG/DL (0.55-1.30); GLOMERULAR FILTRATION RATE > 60.0 (>58); GLUCOSE, FASTING 600 MG/DL (60-100); POTASSIUM SERUM 5.3 MMOL/L (3.5-5.1); SODIUM LEVEL 134 MMOL/L (136-145)
[2023-03-11] MEDS: INSULIN LISPRO (NovoLOG) PER UNIT SC SCH ×5 (07:30→21:00)
[2023-03-11] MEDS ORDERED: INSULIN LISPRO (NovoLOG) PER UNIT SC ONE ×2 (08:25→11:00)
[2023-03-11] MEDS: NICOTINE 14 MG/24 HR TRANSDERMAL TD SCH (08:31)
[2023-03-11] MEDS: FERROUS SULFATE 325MG TAB PO SCH ×2 (08:32→22:00)
[2023-03-11] MEDS: LACTOBACILLUS ACIDOPHILUS CAP (BACID) PO SCH ×2 (08:32→18:40)
[2023-03-11] MEDS: METHADONE 10MG TAB PO SCH (08:32)
[2023-03-11] MEDS: GABAPENTIN 300 MG CAP PO SCH ×3 (08:32→22:00)
[2023-03-11] MEDS: LEVEMIR (INSULIN DETEMIR) 1 UNITS/0.01ML SC SCH (08:33)
[2023-03-11] MEDS ORDERED: INSULIN LISPRO (NovoLOG) PER UNIT SC STA (08:51)
[2023-03-11] MEDS ORDERED: HumaLOG 75/25 MIX INSULIN PER UNIT SC ONE (10:00)
[2023-03-11] MEDS: CEFEPIME HCL 2 GM in D5W MINI-BAG PLUS 50 ML IV SCH ×2 (10:42→22:48)
[2023-03-11] MEDS: HEPARIN SOD (PORCINE) 5000UNITS/ML 1ML VIAL/SYRINGE SC SCH ×2 (13:28→22:48)
[2023-03-11] MEDS: DULoxetine 30MG CAPSULE (CYMBALTA) PO SCH (22:00)
[2023-03-12] MEDS: NS 1,000 ML IV SCH (00:19)
[2023-03-12] MEDS: HEPARIN SOD (PORCINE) 5000UNITS/ML 1ML VIAL/SYRINGE SC SCH ×3 (06:00→21:13)
[2023-03-12 06:46] LABS: BASO # 0.1 10^3/uL (0.0-0.2); BASO % 0.6 % (0.0-1.0); EOS # 0.4 10^3/uL (0.0-0.5); HEMATOCRIT 27.8 % (36.0-47.0); LYMPH # 2.4 10^3/uL (1.5-5.0); LYMPH % 22.4 % (24.0-44.0); MEAN CORPUSCULAR HEMOGLOBIN 29.5 pg (27.0-33.0); MEAN CORPUSCULAR HGB CONC 32.4 g/dl (32.0-36.5); MEAN CORPUSCULAR VOLUME 91.1 fl (80.0-96.0); MONO # 0.7 10^3/uL (0.0-0.8); MONO % 6.1 % (2.0-8.0); NEUTROPHILS # 7.2 10^3/uL (1.5-8.5); NEUTROPHILS % 66.4 % (36.0-66.0); PLATELET COUNT, AUTOMATED 414 10^3/uL (150-450); RED BLOOD COUNT 3.05 10^6/uL (4.00-5.40); WHITE BLOOD COUNT 10.9 10^3/uL (4.0-10.0)
[2023-03-12 06:52] LABS: BLOOD UREA NITROGEN 15 MG/DL (9-23); CALCIUM LEVEL 8.4 MG/DL (8.5-10.1); CARBON DIOXIDE LEVEL 29 MMOL/L (20-31); CHLORIDE LEVEL 102 MMOL/L (98-107); CREATININE FOR GFR 0.64 MG/DL (0.55-1.30); GLOMERULAR FILTRATION RATE > 60.0 (>58); GLUCOSE, FASTING 330 MG/DL (60-100); MAGNESIUM LEVEL 1.8 MG/DL (1.8-2.4); SODIUM LEVEL 134 MMOL/L (136-145)
[2023-03-12] MEDS: LACTOBACILLUS ACIDOPHILUS CAP (BACID) PO SCH ×2 (08:00→17:04)
[2023-03-12] MEDS: INSULIN LISPRO (NovoLOG) PER UNIT SC SCH ×4 (09:18→20:05)
[2023-03-12] MEDS: FERROUS SULFATE 325MG TAB PO SCH ×2 (09:18→21:13)
[2023-03-12] MEDS: NICOTINE 14 MG/24 HR TRANSDERMAL TD SCH (09:19)
[2023-03-12] MEDS: GABAPENTIN 300 MG CAP PO SCH ×3 (09:19→21:11)
[2023-03-12] MEDS: LEVEMIR (INSULIN DETEMIR) 1 UNITS/0.01ML SC SCH (09:19)
[2023-03-12] MEDS: METHADONE 10MG TAB PO SCH (09:19)
[2023-03-12] MEDS: CEFEPIME HCL 2 GM in D5W MINI-BAG PLUS 50 ML IV SCH ×2 (09:19→21:11)
[2023-03-12] MEDS: VANCOMYCIN HCL 500 MG in D5W MINI-BAG PLUS 100 ML IV SCH ×2 (10:58→22:50)
[2023-03-12] MEDS: PERCOCET 5MG/325MG TAB PO PRN ×2 (12:41→21:12)
[2023-03-12 14:00] VITALS: BP 128/72; TEMP 96.4; O2SAT 96
[2023-03-12 18:02] VITALS: BP 124/74; TEMP 97.5; O2SAT 99
[2023-03-12] MEDS: DULoxetine 30MG CAPSULE (CYMBALTA) PO SCH (21:11)
[2023-03-12 22:00] VITALS: BP 122/71; TEMP 97.4; O2SAT 99
[2023-03-13 05:05] VITALS: BP 132/67; TEMP 97.1; O2SAT 96
[2023-03-13] MEDS: HEPARIN SOD (PORCINE) 5000UNITS/ML 1ML VIAL/SYRINGE SC SCH ×3 (05:32→21:04)
[2023-03-13 06:36] LABS: BASO # 0.1 10^3/uL (0.0-0.2); BASO % 0.8 % (0.0-1.0); EOS # 0.6 10^3/uL (0.0-0.5); HEMATOCRIT 28.3 % (36.0-47.0); LYMPH # 3.2 10^3/uL (1.5-5.0); LYMPH % 37.1 % (24.0-44.0); MEAN CORPUSCULAR HEMOGLOBIN 29.2 pg (27.0-33.0); MEAN CORPUSCULAR HGB CONC 31.8 g/dl (32.0-36.5); MEAN CORPUSCULAR VOLUME 91.9 fl (80.0-96.0); MONO # 0.5 10^3/uL (0.0-0.8); MONO % 6.1 % (2.0-8.0); NEUTROPHILS # 4.1 10^3/uL (1.5-8.5); NEUTROPHILS % 47.8 % (36.0-66.0); PLATELET COUNT, AUTOMATED 409 10^3/uL (150-450); RED BLOOD COUNT 3.08 10^6/uL (4.00-5.40); WHITE BLOOD COUNT 8.5 10^3/uL (4.0-10.0)
[2023-03-13 07:00] LABS: BLOOD UREA NITROGEN 15 MG/DL (9-23); CALCIUM LEVEL 8.3 MG/DL (8.5-10.1); CARBON DIOXIDE LEVEL 31 MMOL/L (20-31); CHLORIDE LEVEL 101 MMOL/L (98-107); CREATININE FOR GFR 0.73 MG/DL (0.55-1.30); GLOMERULAR FILTRATION RATE > 60.0 (>58); GLUCOSE, FASTING 289 MG/DL (60-100); MAGNESIUM LEVEL 1.7 MG/DL (1.8-2.4); POTASSIUM SERUM 4.6 MMOL/L (3.5-5.1); SODIUM LEVEL 134 MMOL/L (136-145)
[2023-03-13] MEDS: LACTOBACILLUS ACIDOPHILUS CAP (BACID) PO SCH ×2 (08:44→17:54)
[2023-03-13] MEDS: GABAPENTIN 300 MG CAP PO SCH ×3 (08:45→20:58)
[2023-03-13] MEDS: METHADONE 10MG TAB PO SCH (08:45)
[2023-03-13] MEDS: FERROUS SULFATE 325MG TAB PO SCH ×2 (08:45→20:58)
[2023-03-13] MEDS: INSULIN LISPRO (NovoLOG) PER UNIT SC SCH ×4 (08:45→21:00)
[2023-03-13] MEDS: NICOTINE 14 MG/24 HR TRANSDERMAL TD SCH (08:46)
[2023-03-13] MEDS: LEVEMIR (INSULIN DETEMIR) 1 UNITS/0.01ML SC SCH (08:46)
[2023-03-13] MEDS: CEFEPIME HCL 2 GM in D5W MINI-BAG PLUS 50 ML IV SCH ×2 (10:04→21:25)
[2023-03-13] MEDS: VANCOMYCIN HCL 500 MG in D5W MINI-BAG PLUS 100 ML IV SCH ×2 (10:50→22:07)
[2023-03-13] MEDS: PERCOCET 5MG/325MG TAB PO PRN (14:03)
[2023-03-13 14:34] VITALS: BP 142/81; TEMP 97.7; O2SAT 99
[2023-03-13 20:30] VITALS: BP 107/61; TEMP 97.7; O2SAT 97
[2023-03-13] MEDS: DULoxetine 30MG CAPSULE (CYMBALTA) PO SCH (20:58)
[2023-03-14] MEDS: HEPARIN SOD (PORCINE) 5000UNITS/ML 1ML VIAL/SYRINGE SC SCH ×3 (05:18→21:13)
[2023-03-14 05:54] VITALS: BP 130/70; TEMP 97.9; O2SAT 94
[2023-03-14 07:56] LABS: BASO # 0.1 10^3/uL (0.0-0.2); BASO % 0.7 % (0.0-1.0); EOS # 0.6 10^3/uL (0.0-0.5); EOS % 6.6 % (0.0-3.0); HEMATOCRIT 27.5 % (36.0-47.0); HEMOGLOBIN 8.8 g/dl (12.0-15.5); LYMPH # 2.9 10^3/uL (1.5-5.0); LYMPH % 30.8 % (24.0-44.0); MEAN CORPUSCULAR HEMOGLOBIN 29.3 pg (27.0-33.0); MEAN CORPUSCULAR VOLUME 91.7 fl (80.0-96.0); MONO # 0.7 10^3/uL (0.0-0.8); MONO % 7.2 % (2.0-8.0); NEUTROPHILS % 52.9 % (36.0-66.0); PLATELET COUNT, AUTOMATED 450 10^3/uL (150-450); WHITE BLOOD COUNT 9.4 10^3/uL (4.0-10.0)
[2023-03-14 08:16] LABS: BLOOD UREA NITROGEN 20 MG/DL (9-23); CALCIUM LEVEL 8.5 MG/DL (8.5-10.1); CARBON DIOXIDE LEVEL 31 MMOL/L (20-31); CHLORIDE LEVEL 100 MMOL/L (98-107); CREATININE FOR GFR 0.78 MG/DL (0.55-1.30); GLOMERULAR FILTRATION RATE > 60.0 (>58); GLUCOSE, FASTING 432 MG/DL (60-100); MAGNESIUM LEVEL 1.9 MG/DL (1.8-2.4); POTASSIUM SERUM 5.2 MMOL/L (3.5-5.1); SODIUM LEVEL 133 MMOL/L (136-145)
[2023-03-14] MEDS: METHADONE 10MG TAB PO SCH (08:31)
[2023-03-14] MEDS: LACTOBACILLUS ACIDOPHILUS CAP (BACID) PO SCH ×2 (08:31→17:10)
[2023-03-14] MEDS: GABAPENTIN 300 MG CAP PO SCH ×3 (08:32→21:13)
[2023-03-14] MEDS: FERROUS SULFATE 325MG TAB PO SCH ×2 (08:32→21:14)
[2023-03-14] MEDS: NICOTINE 14 MG/24 HR TRANSDERMAL TD SCH ×2 (08:32→08:44)
[2023-03-14] MEDS: CEFEPIME HCL 2 GM in D5W MINI-BAG PLUS 50 ML IV SCH ×2 (08:32→21:12)
[2023-03-14] MEDS: LEVEMIR (INSULIN DETEMIR) 1 UNITS/0.01ML SC SCH (08:33)
[2023-03-14] MEDS: INSULIN LISPRO (NovoLOG) PER UNIT SC SCH ×4 (08:33→21:15)
[2023-03-14] MEDS: VANCOMYCIN HCL 500 MG in D5W MINI-BAG PLUS 100 ML IV SCH ×2 (11:23→22:55)
[2023-03-14 14:17] VITALS: BP 117/65; TEMP 97.5; O2SAT 96
[2023-03-14 20:47] VITALS: BP 112/74; TEMP 97.7; O2SAT 96
[2023-03-14] MEDS: DULoxetine 30MG CAPSULE (CYMBALTA) PO SCH (21:13)
[2023-03-15] MEDS: HEPARIN SOD (PORCINE) 5000UNITS/ML 1ML VIAL/SYRINGE SC SCH ×3 (05:29→21:07)
[2023-03-15 06:49] LABS: BASO # 0.1 10^3/uL (0.0-0.2); BASO % 0.7 % (0.0-1.0); EOS # 0.5 10^3/uL (0.0-0.5); EOS % 4.8 % (0.0-3.0); HEMATOCRIT 27.5 % (36.0-47.0); HEMOGLOBIN 8.7 g/dl (12.0-15.5); LYMPH # 3.1 10^3/uL (1.5-5.0); MEAN CORPUSCULAR HEMOGLOBIN 29.2 pg (27.0-33.0); MEAN CORPUSCULAR HGB CONC 31.6 g/dl (32.0-36.5); MEAN CORPUSCULAR VOLUME 92.3 fl (80.0-96.0); MONO # 0.8 10^3/uL (0.0-0.8); MONO % 7.2 % (2.0-8.0); NEUTROPHILS # 6.1 10^3/uL (1.5-8.5); NEUTROPHILS % 56.8 % (36.0-66.0); PLATELET COUNT, AUTOMATED 498 10^3/uL (150-450); RED BLOOD COUNT 2.98 10^6/uL (4.00-5.40); WHITE BLOOD COUNT 10.8 10^3/uL (4.0-10.0)
[2023-03-15 07:14] LABS: BLOOD UREA NITROGEN 25 MG/DL (9-23); CALCIUM LEVEL 8.6 MG/DL (8.5-10.1); CARBON DIOXIDE LEVEL 32 MMOL/L (20-31); CHLORIDE LEVEL 99 MMOL/L (98-107); CREATININE FOR GFR 0.84 MG/DL (0.55-1.30); GLOMERULAR FILTRATION RATE > 60.0 (>58); GLUCOSE, FASTING 473 MG/DL (60-100); POTASSIUM SERUM 5.3 MMOL/L (3.5-5.1); SODIUM LEVEL 133 MMOL/L (136-145)
[2023-03-15] MEDS: INSULIN LISPRO (NovoLOG) PER UNIT SC SCH ×6 (08:22→16:55)
[2023-03-15] MEDS: NICOTINE 14 MG/24 HR TRANSDERMAL TD SCH (08:23)
[2023-03-15] MEDS: LEVEMIR (INSULIN DETEMIR) 1 UNITS/0.01ML SC SCH (08:24)
[2023-03-15] MEDS: GABAPENTIN 300 MG CAP PO SCH ×3 (08:25→21:06)
[2023-03-15] MEDS: CEFEPIME HCL 2 GM in D5W MINI-BAG PLUS 50 ML IV SCH ×2 (08:25→21:05)
[2023-03-15] MEDS: LACTOBACILLUS ACIDOPHILUS CAP (BACID) PO SCH ×2 (08:25→16:53)
[2023-03-15] MEDS: METHADONE 10MG TAB PO SCH (08:25)
[2023-03-15] MEDS: FERROUS SULFATE 325MG TAB PO SCH ×2 (08:25→21:05)
[2023-03-15] MEDS: VANCOMYCIN HCL 500 MG in D5W MINI-BAG PLUS 100 ML IV SCH ×2 (11:10→22:49)
[2023-03-15] MEDS ORDERED: NICOTINE POLACRILEX 2 MG GUM PO PRN (12:45)
[2023-03-15 14:08] VITALS: BP 112/71; TEMP 97.9; O2SAT 97
[2023-03-15 20:42] VITALS: BP 117/69; TEMP 97.7; O2SAT 100
[2023-03-15] MEDS ORDERED: INSULIN LISPRO (NovoLOG) PER UNIT SC SCH (21:00)
[2023-03-15] MEDS: DULoxetine 30MG CAPSULE (CYMBALTA) PO SCH (21:05)
[2023-03-15] MEDS: PERCOCET 5MG/325MG TAB PO PRN (21:06)
[2023-03-16] MEDS ORDERED: HYALURONIDASE 15UNIT/ML 1ML SYRINGE (AMPHADASE) SC ONE (00:15)
[2023-03-16 05:50] VITALS: BP 131/71; TEMP 97.9; O2SAT 96
[2023-03-16] MEDS: HEPARIN SOD (PORCINE) 5000UNITS/ML 1ML VIAL/SYRINGE SC SCH (06:00)
[2023-03-16 06:24] LABS: BASO # 0.1 10^3/uL (0.0-0.2); BASO % 0.7 % (0.0-1.0); EOS # 0.6 10^3/uL (0.0-0.5); EOS % 5.9 % (0.0-3.0); HEMATOCRIT 29.5 % (36.0-47.0); HEMOGLOBIN 9.3 g/dl (12.0-15.5); LYMPH # 3.6 10^3/uL (1.5-5.0); MEAN CORPUSCULAR HEMOGLOBIN 29.7 pg (27.0-33.0); MEAN CORPUSCULAR HGB CONC 31.5 g/dl (32.0-36.5); MEAN CORPUSCULAR VOLUME 94.2 fl (80.0-96.0); MONO # 0.7 10^3/uL (0.0-0.8); MONO % 7.5 % (2.0-8.0); NEUTROPHILS # 4.6 10^3/uL (1.5-8.5); NEUTROPHILS % 47.1 % (36.0-66.0); PLATELET COUNT, AUTOMATED 527 10^3/uL (150-450); RED BLOOD COUNT 3.13 10^6/uL (4.00-5.40); WHITE BLOOD COUNT 9.7 10^3/uL (4.0-10.0)
[2023-03-16 06:57] LABS: BLOOD UREA NITROGEN 26 MG/DL (9-23); CALCIUM LEVEL 9.1 MG/DL (8.5-10.1); CARBON DIOXIDE LEVEL 33 MMOL/L (20-31); CHLORIDE LEVEL 97 MMOL/L (98-107); CREATININE FOR GFR 0.91 MG/DL (0.55-1.30); GLOMERULAR FILTRATION RATE > 60.0 (>58); GLUCOSE, FASTING 362 MG/DL (60-100); MAGNESIUM LEVEL 2.4 MG/DL (1.8-2.4); POTASSIUM SERUM 5.4 MMOL/L (3.5-5.1); SODIUM LEVEL 131 MMOL/L (136-145)
[2023-03-16] MEDS: GABAPENTIN 300 MG CAP PO SCH (08:01)
[2023-03-16] MEDS: FERROUS SULFATE 325MG TAB PO SCH (08:01)
[2023-03-16] MEDS: LACTOBACILLUS ACIDOPHILUS CAP (BACID) PO SCH (08:01)
[2023-03-16] MEDS: INSULIN LISPRO (NovoLOG) PER UNIT SC SCH ×4 (08:02→13:53)
[2023-03-16] MEDS: METHADONE 10MG TAB PO SCH (08:03)
[2023-03-16] MEDS ORDERED: NICOTINE 21MG/24HR 1 EA TRANSDERMAL TD SCH (09:00)
[2023-03-16] MEDS: LEVEMIR (INSULIN DETEMIR) 1 UNITS/0.01ML SC SCH (09:55)
[2023-03-16] MEDS: CEFEPIME HCL 2 GM in D5W MINI-BAG PLUS 50 ML IV SCH (09:55)
[2023-03-16] MEDS: VANCOMYCIN HCL 500 MG in D5W MINI-BAG PLUS 100 ML IV SCH (11:07)
[2023-03-16] MEDS ORDERED: METOCLOPRAMIDE INJ 10MG/2ML VIAL IV PRN (13:15)
[2023-03-16 14:00] VITALS: BP 140/72; TEMP 97.9; O2SAT 96
[2023-03-16] MEDS ORDERED: ADME100I SC ×2 (14:41→15:16)
[2023-03-16] MEDS ORDERED: CEFU50TA PO (14:41)
[2023-03-16] MEDS ORDERED: METR-265 PO (14:41)
[2023-03-16] MEDS ORDERED: LANTINJ4 SC (14:41)
[2023-03-16] MEDS ORDERED: INSUHUMDS SC (14:41)
[2023-03-16] MEDS ORDERED: metroNIDAZOLE (FLAGYL) 500MG TABLET PO SCH (16:00)
[2023-03-16] MEDS ORDERED: CEFUROXIME 500 MG TAB PO SCH (21:00)
[2023-03-16] MEDS ORDERED: HEPARIN SOD (PORCINE) 5000UNITS/ML 1ML VIAL/SYRINGE SC SCH (21:00)
== END 2023-03-16 17:20 | disposition home health service (06) | DRG 314 ==
LOC: M ED 01:43 → M ED INP 11:32 → M MS4PR 14:30 → M MS5PR 03-12 17:50
PROVIDERS: ADMIT Family Medicine; ATTEND Internal Medicine Nephrology
PROC: 0QBM0ZZ Excision of Left Tarsal, Open Approach (ICD-10-PCS; 2023-03-10)
PROC: 0KBW0ZZ Excision of Left Foot Muscle, Open Approach (ICD-10-PCS; principal; 2023-03-10 16:30)
PROC: 30233N1 Transfusion of Nonautologous Red Blood Cells into Peripheral Vein, Percutaneous Approach (ICD-10-PCS; 2023-03-11)
DX: E11.69 Type 2 diabetes mellitus with other specified complication (principal); M72.6 Necrotizing fasciitis; E11.649 Type 2 diabetes mellitus with hypoglycemia without coma; E11.42 Type 2 diabetes mellitus with diabetic polyneuropathy; M86.8X7 Other osteomyelitis, ankle and foot; E11.65 Type 2 diabetes mellitus with hyperglycemia; D62 Acute posthemorrhagic anemia; F50.81 Binge eating disorder; E61.1 Iron deficiency; D64.9 Anemia, unspecified; F17.210 Nicotine dependence, cigarettes, uncomplicated; Z79.4 Long term (current) use of insulin; Z88.0 Allergy status to penicillin; Z79.899 Other long term (current) drug therapy; Z89.021 Acquired absence of right finger(s); Z89.022 Acquired absence of left finger(s)

== ENCOUNTER 2023-03-28 20:52 | Inpatient (IN) | payer OTHER ==
[~2023-03-28] VITALS: Ht 157.5 cm; Wt 50.0 kg
[~2023-03-28 20:52] MED LIST changes: +CEFU50TA PO; +INSUHUMDS SC; +METR-265 PO
[2023-03-29 08:36] LABS: BASO # 0.1 10^3/uL (0.0-0.2); BASO % 0.6 % (0.0-1.0); EOS # 0.1 10^3/uL (0.0-0.5); EOS % 1.1 % (0.0-3.0); HEMATOCRIT 29.7 % (36.0-47.0); HEMOGLOBIN 9.5 g/dl (12.0-15.5); MEAN CORPUSCULAR HEMOGLOBIN 29.8 pg (27.0-33.0); MEAN CORPUSCULAR VOLUME 93.1 fl (80.0-96.0); MONO # 0.8 10^3/uL (0.0-0.8); MONO % 7.4 % (2.0-8.0); NEUTROPHILS # 7.5 10^3/uL (1.5-8.5); NEUTROPHILS % 71.4 % (36.0-66.0); PLATELET COUNT, AUTOMATED 525 10^3/uL (150-450); RED BLOOD COUNT 3.19 10^6/uL (4.00-5.40); WHITE BLOOD COUNT 10.5 10^3/uL (4.0-10.0)
[2023-03-29 08:38] LABS: INR 1.13; PROTHROMBIN TIME 14.1 SECONDS (12.5-14.5)
[2023-03-29 08:39] LABS: PARTIAL THROMBOPLASTIN TIME 34.6 SECONDS (24.8-34.2)
[2023-03-29 08:43] LABS: ERYTHROCYTE SEDIMENTATION RATE 112 mm/hr (0-20)
[2023-03-29] MEDS ORDERED: MED REC IN PROGRESS XX SCH (08:50)
[2023-03-29 08:55] LABS: C REACTIVE PROTEIN QUANTITATIV 20.2 MG/DL (<1.0)
[2023-03-29 08:59] LABS: CALCIUM LEVEL 8.3 MG/DL (8.5-10.1); CREATININE FOR GFR 1.16 MG/DL (0.55-1.30); GLOMERULAR FILTRATION RATE 53.5 (>58)
[2023-03-29 09:05] LABS: RSV AMPLIFICATION NEGATIVE (NEGATIVE)
[2023-03-29] MEDS ORDERED: PROHANCE 279.3MG/ML 5ML VIAL As Ordered ONE (09:43)
[2023-03-29] MEDS ORDERED: LEVEMIR (INSULIN DETEMIR) 1 UNITS/0.01ML SC ONE (09:55)
[2023-03-29] MEDS ORDERED: NS 1,000 ML IV ONE (09:55)
[2023-03-29] MEDS ORDERED: VANCOMYCIN HCL 1,000 MG in IV FLUID PLACE HOLDER 1 EA IV ONE (11:30)
[2023-03-29] MEDS ORDERED: [UNRECOGNIZED DRUG - REMARK] (11:40)
[2023-03-29] MEDS ORDERED: HOME MED LIST COMPLETE! XX SCH (11:45)
[2023-03-29] MEDS ORDERED: GLUCAGON INJ 1MG VIAL SC PRN (12:35)
[2023-03-29] MEDS ORDERED: DEXTROSE 50% 50ML SYRINGE IV PRN (12:35)
[2023-03-29] MEDS ORDERED: GLUCOSE 4GM CHEW TABLET PO PRN (12:35)
[2023-03-29] MEDS ORDERED: VANCOMYCIN HCL 1,000 MG, VIAL MATE ADAPTER 1 EACH in D5W 250 ML IV ONE (13:00)
[2023-03-29] MEDS ORDERED: ADME100I SC (13:18)
[2023-03-29] MEDS: CEFEPIME HCL 2 GM in D5W MINI-BAG PLUS 50 ML IV SCH (13:46)
[2023-03-29 13:47] LABS: PROCALCITONIN 0.56 ng/ml
[2023-03-29] MEDS: GABAPENTIN 300 MG CAP PO SCH ×2 (16:20→21:18)
[2023-03-29] MEDS ORDERED: INSULIN LISPRO (NovoLOG) PER UNIT SC SCH ×3 (17:30→21:00)
[2023-03-29] MEDS: INSULIN LISPRO (NovoLOG) PER UNIT SC SCH (18:33)
[2023-03-29 20:58] VITALS: BP 135/82; TEMP 97.6; O2SAT 99
[2023-03-29] MEDS: DULoxetine 30MG CAPSULE (CYMBALTA) PO SCH (21:18)
[2023-03-29] MEDS: VANCOMYCIN HCL 500 MG in D5W MINI-BAG PLUS 100 ML IV SCH (21:19)
[2023-03-29] MEDS: HEPARIN SOD (PORCINE) 5000UNITS/ML 1ML VIAL/SYRINGE SQ SCH (21:19)
[2023-03-30] MEDS: CEFEPIME HCL 2 GM in D5W MINI-BAG PLUS 50 ML IV SCH ×2 (01:33→13:53)
[2023-03-30 05:37] LABS: HEMATOCRIT 28.3 % (36.0-47.0); HEMOGLOBIN 8.9 g/dl (12.0-15.5); MEAN CORPUSCULAR HEMOGLOBIN 29.7 pg (27.0-33.0); MEAN CORPUSCULAR HGB CONC 31.4 g/dl (32.0-36.5); MEAN CORPUSCULAR VOLUME 94.3 fl (80.0-96.0); PLATELET COUNT, AUTOMATED 537 10^3/uL (150-450); WHITE BLOOD COUNT 8.1 10^3/uL (4.0-10.0)
[2023-03-30 05:42] VITALS: BP 127/56; TEMP 96.8; O2SAT 92
[2023-03-30 06:32] LABS: CALCIUM LEVEL 7.9 MG/DL (8.5-10.1); CREATININE FOR GFR 1.17 MG/DL (0.55-1.30); POTASSIUM SERUM 5.1 MMOL/L (3.5-5.1)
[2023-03-30] MEDS ORDERED: HumuLIN R (REGULAR) INSULIN (NovoLIN R) **100U/ML** PER UNIT SC ONE (06:40)
[2023-03-30] MEDS: INSULIN LISPRO (NovoLOG) PER UNIT SC SCH ×3 (08:50→17:30)
[2023-03-30] MEDS: LEVEMIR (INSULIN DETEMIR) 1 UNITS/0.01ML SC SCH (08:50)
[2023-03-30] MEDS: GABAPENTIN 300 MG CAP PO SCH ×3 (08:51→21:32)
[2023-03-30] MEDS: METHADONE 10MG TAB PO SCH (08:51)
[2023-03-30] MEDS: VANCOMYCIN HCL 500 MG in D5W MINI-BAG PLUS 100 ML IV SCH (08:51)
[2023-03-30] MEDS: HEPARIN SOD (PORCINE) 5000UNITS/ML 1ML VIAL/SYRINGE SQ SCH ×2 (08:52→21:33)
[2023-03-30] MEDS ORDERED: LEVEMIR (INSULIN DETEMIR) 1 UNITS/0.01ML SC SCH (09:00)
[2023-03-30] MEDS ORDERED: ENOXAPARIN 40MG/0.4ML SYRINGE (J1650 PER 10MG) SC SCH (09:00)
[2023-03-30] MEDS ORDERED: NICOTINE POLACRILEX 2 MG GUM PO PRN (09:45)
[2023-03-30 14:00] VITALS: BP 143/78; TEMP 97; O2SAT 98
[2023-03-30] MEDS: DULoxetine 30MG CAPSULE (CYMBALTA) PO SCH (21:32)
[2023-03-30 21:41] VITALS: BP 143/65; TEMP 97.2; O2SAT 98
[2023-03-30] MEDS ORDERED: ACETAMINOPHEN TAB 650MG DOSE (2X325MG) PO PRN (22:40)
[2023-03-31] MEDS: CEFEPIME HCL 2 GM in D5W MINI-BAG PLUS 50 ML IV SCH ×3 (00:30→22:09)
[2023-03-31 05:10] VITALS: BP 121/64; TEMP 96.7; O2SAT 95
[2023-03-31 08:15] LABS: BASO # 0.1 10^3/uL (0.0-0.2); BASO % 0.7 % (0.0-1.0); EOS # 0.4 10^3/uL (0.0-0.5); EOS % 4.8 % (0.0-3.0); HEMATOCRIT 30.3 % (36.0-47.0); HEMOGLOBIN 9.5 g/dl (12.0-15.5); LYMPH # 2.4 10^3/uL (1.5-5.0); LYMPH % 32.9 % (24.0-44.0); MEAN CORPUSCULAR HEMOGLOBIN 29.7 pg (27.0-33.0); MEAN CORPUSCULAR HGB CONC 31.4 g/dl (32.0-36.5); MEAN CORPUSCULAR VOLUME 94.7 fl (80.0-96.0); MONO # 0.5 10^3/uL (0.0-0.8); MONO % 6.3 % (2.0-8.0); NEUTROPHILS % 54.6 % (36.0-66.0); PLATELET COUNT, AUTOMATED 526 10^3/uL (150-450); WHITE BLOOD COUNT 7.3 10^3/uL (4.0-10.0)
[2023-03-31] MEDS: INSULIN LISPRO (NovoLOG) PER UNIT SC SCH ×4 (08:18→21:00)
[2023-03-31] MEDS: LEVEMIR (INSULIN DETEMIR) 1 UNITS/0.01ML SC SCH (08:18)
[2023-03-31] MEDS: GABAPENTIN 300 MG CAP PO SCH ×3 (08:19→21:52)
[2023-03-31] MEDS: METHADONE 10MG TAB PO SCH (08:19)
[2023-03-31] MEDS: HEPARIN SOD (PORCINE) 5000UNITS/ML 1ML VIAL/SYRINGE SQ SCH ×2 (08:20→21:52)
[2023-03-31 09:00] LABS: BLOOD UREA NITROGEN 21 MG/DL (9-23); CALCIUM LEVEL 8.7 MG/DL (8.5-10.1); CARBON DIOXIDE LEVEL 31 MMOL/L (20-31); CHLORIDE LEVEL 100 MMOL/L (98-107); CREATININE FOR GFR 0.78 MG/DL (0.55-1.30); GLOMERULAR FILTRATION RATE > 60.0 (>58); GLUCOSE, FASTING 481 MG/DL (60-100); POTASSIUM SERUM 5.7 MMOL/L (3.5-5.1); SODIUM LEVEL 132 MMOL/L (136-145)
[2023-03-31] MEDS ORDERED: INSULIN LISPRO (NovoLOG) PER UNIT SC SCH (12:00)
[2023-03-31 14:00] VITALS: BP 137/78; TEMP 97.4; O2SAT 100
[2023-03-31] MEDS ORDERED: SODIUM CHLORIDE 0.9% 1000ML IV SCH (14:05)
[2023-03-31] MEDS ORDERED: ALBUTEROL SULFATE 2.5MG/0.5ML INH NEB SOLN NEB ONE (14:05)
[2023-03-31] MEDS ORDERED: FUROSEMIDE 40MG/4ML VIAL IV ONE (14:05)
[2023-03-31] MEDS ORDERED: CALCIUM GLUCONATE 1,000 MG in D5W MINI-BAG PLUS 100 ML IV ONE (15:00)
[2023-03-31 16:57] LABS: BLOOD UREA NITROGEN 19 MG/DL (9-23); CALCIUM LEVEL 9.1 MG/DL (8.5-10.1); CARBON DIOXIDE LEVEL 31 MMOL/L (20-31); CHLORIDE LEVEL 103 MMOL/L (98-107); GLOMERULAR FILTRATION RATE > 60.0 (>58); GLUCOSE, FASTING 69 MG/DL (60-100); POTASSIUM SERUM 5.1 MMOL/L (3.5-5.1); SODIUM LEVEL 138 MMOL/L (136-145)
[2023-03-31] MEDS ORDERED: fentaNYL 100 MCG/2 ML INJECTION IV PRN (18:50)
[2023-03-31] MEDS ORDERED: ONDANSETRON 4MG 2ML VIAL IV PRN (18:50)
[2023-03-31] MEDS ORDERED: LR 1,000 ML IV SCH (18:50)
[2023-03-31] MEDS ORDERED: oxyCODONE 5MG TAB PO PRN (18:50)
[2023-03-31] MEDS ORDERED: TOBRAMYCIN SULF 1.2GM VIAL As Ordered ONE (19:31)
[2023-03-31 21:20] VITALS: BP 120/62; TEMP 98.3; O2SAT 91
[2023-03-31 21:50] VITALS: BP 125/59; TEMP 98.2; O2SAT 100
[2023-03-31] MEDS: DULoxetine 30MG CAPSULE (CYMBALTA) PO SCH (21:52)
[2023-03-31 22:20] VITALS: BP 127/67; TEMP 98; O2SAT 98
[2023-03-31 23:20] VITALS: BP 106/55; TEMP 97.8; O2SAT 95
[2023-04-01] VITALS (8 sets, daily range): BP systolic 112–151; BP diastolic 57–82; TEMP 96.7–97.8; O2SAT 95–99
[2023-04-01] MEDS ORDERED: INSULIN LISPRO (NovoLOG) PER UNIT SC ONE (02:25)
[2023-04-01] MEDS: CEFEPIME HCL 2 GM in D5W MINI-BAG PLUS 50 ML IV SCH ×2 (04:06→12:32)
[2023-04-01 06:57] LABS: BASO # 0.1 10^3/uL (0.0-0.2); BASO % 0.9 % (0.0-1.0); EOS # 0.2 10^3/uL (0.0-0.5); EOS % 2.9 % (0.0-3.0); HEMATOCRIT 27.5 % (36.0-47.0); HEMOGLOBIN 8.5 g/dl (12.0-15.5); LYMPH # 2.3 10^3/uL (1.5-5.0); MEAN CORPUSCULAR HEMOGLOBIN 29.4 pg (27.0-33.0); MEAN CORPUSCULAR HGB CONC 30.9 g/dl (32.0-36.5); MEAN CORPUSCULAR VOLUME 95.2 fl (80.0-96.0); MONO # 0.5 10^3/uL (0.0-0.8); MONO % 6.8 % (2.0-8.0); NEUTROPHILS # 4.6 10^3/uL (1.5-8.5); NEUTROPHILS % 58.8 % (36.0-66.0); PLATELET COUNT, AUTOMATED 523 10^3/uL (150-450); RED BLOOD COUNT 2.89 10^6/uL (4.00-5.40); WHITE BLOOD COUNT 7.8 10^3/uL (4.0-10.0)
[2023-04-01 07:20] LABS: BLOOD UREA NITROGEN 19 MG/DL (9-23); CALCIUM LEVEL 8.7 MG/DL (8.5-10.1); CARBON DIOXIDE LEVEL 33 MMOL/L (20-31); CHLORIDE LEVEL 103 MMOL/L (98-107); CREATININE FOR GFR 0.75 MG/DL (0.55-1.30); GLOMERULAR FILTRATION RATE > 60.0 (>58); GLUCOSE, FASTING 381 MG/DL (60-100); POTASSIUM SERUM 5.2 MMOL/L (3.5-5.1); SODIUM LEVEL 138 MMOL/L (136-145)
[2023-04-01] MEDS: INSULIN LISPRO (NovoLOG) PER UNIT SC SCH ×7 (08:58→20:46)
[2023-04-01] MEDS: GABAPENTIN 300 MG CAP PO SCH ×3 (09:00→20:46)
[2023-04-01] MEDS ORDERED: LEVEMIR (INSULIN DETEMIR) 1 UNITS/0.01ML SC SCH (09:00)
[2023-04-01] MEDS: METHADONE 10MG TAB PO SCH (09:00)
[2023-04-01] MEDS: HEPARIN SOD (PORCINE) 5000UNITS/ML 1ML VIAL/SYRINGE SQ SCH ×2 (09:00→20:46)
[2023-04-01] MEDS: LevoFLOXacin 750 MG TABLET PO SCH (15:57)
[2023-04-01] MEDS: DULoxetine 30MG CAPSULE (CYMBALTA) PO SCH (20:46)
[2023-04-02] MEDS: LevoFLOXacin 750 MG TABLET PO SCH (05:49)
[2023-04-02 06:00] VITALS: BP 140/67; TEMP 97.3; O2SAT 96
[2023-04-02] MEDS ORDERED: INSULIN LISPRO (NovoLOG) PER UNIT SC STA (06:02)
[2023-04-02] MEDS: INSULIN LISPRO (NovoLOG) PER UNIT SC SCH ×8 (06:49→21:00)
[2023-04-02 07:40] LABS: ALBUMIN 2.1 G/DL (3.2-5.2); ALKALINE PHOSPHATASE 153 U/L (46-116); ALT/SGPT < 9 U/L (7.0-40); AST/SGOT 15 U/L (<34); BILIRUBIN,TOTAL < 0.2 MG/DL (0.3-1.2); BLOOD UREA NITROGEN 22 MG/DL (9-23); CALCIUM LEVEL 9.2 MG/DL (8.5-10.1); CARBON DIOXIDE LEVEL 32 MMOL/L (20-31); CHLORIDE LEVEL 97 MMOL/L (98-107); CREATININE FOR GFR 0.72 MG/DL (0.55-1.30); GLOMERULAR FILTRATION RATE > 60.0 (>58); GLUCOSE, FASTING 546 MG/DL (60-100); POTASSIUM SERUM 5.4 MMOL/L (3.5-5.1); SODIUM LEVEL 132 MMOL/L (136-145); TOTAL PROTEIN 6.7 G/DL (5.7-8.2)
[2023-04-02] MEDS: GABAPENTIN 300 MG CAP PO SCH ×3 (08:11→20:30)
[2023-04-02] MEDS: HEPARIN SOD (PORCINE) 5000UNITS/ML 1ML VIAL/SYRINGE SQ SCH ×3 (08:11→20:27)
[2023-04-02] MEDS: LEVEMIR (INSULIN DETEMIR) 1 UNITS/0.01ML SC SCH (08:12)
[2023-04-02] MEDS: METHADONE 10MG TAB PO SCH (08:12)
[2023-04-02] MEDS ORDERED: INSULIN LISPRO (NovoLOG) PER UNIT SC ONE (08:15)
[2023-04-02 14:00] VITALS: BP 154/88; TEMP 97.7; O2SAT 98
[2023-04-02 19:52] VITALS: BP 121/74; TEMP 97.9; O2SAT 97
[2023-04-02] MEDS: DULoxetine 30MG CAPSULE (CYMBALTA) PO SCH (20:30)
[2023-04-03] MEDS: LevoFLOXacin 750 MG TABLET PO SCH (05:29)
[2023-04-03 06:00] VITALS: BP 117/61; TEMP 97.4; O2SAT 98
[2023-04-03 07:48] LABS: BASO # 0.1 10^3/uL (0.0-0.2); BASO % 0.8 % (0.0-1.0); EOS # 0.5 10^3/uL (0.0-0.5); EOS % 4.6 % (0.0-3.0); HEMATOCRIT 30.2 % (36.0-47.0); HEMOGLOBIN 9.5 g/dl (12.0-15.5); LYMPH # 3.5 10^3/uL (1.5-5.0); LYMPH % 36.1 % (24.0-44.0); MEAN CORPUSCULAR HGB CONC 31.5 g/dl (32.0-36.5); MEAN CORPUSCULAR VOLUME 95.3 fl (80.0-96.0); MONO # 0.7 10^3/uL (0.0-0.8); MONO % 7.2 % (2.0-8.0); NEUTROPHILS # 4.9 10^3/uL (1.5-8.5); NEUTROPHILS % 50.3 % (36.0-66.0); PLATELET COUNT, AUTOMATED 500 10^3/uL (150-450); RED BLOOD COUNT 3.17 10^6/uL (4.00-5.40); WHITE BLOOD COUNT 9.7 10^3/uL (4.0-10.0)
[2023-04-03 08:18] LABS: BLOOD UREA NITROGEN 25 MG/DL (9-23); CALCIUM LEVEL 8.8 MG/DL (8.5-10.1); CARBON DIOXIDE LEVEL 31 MMOL/L (20-31); CHLORIDE LEVEL 101 MMOL/L (98-107); CREATININE FOR GFR 1.01 MG/DL (0.55-1.30); GLOMERULAR FILTRATION RATE > 60.0 (>58); GLUCOSE, FASTING 231 MG/DL (60-100); POTASSIUM SERUM 5.4 MMOL/L (3.5-5.1); SODIUM LEVEL 135 MMOL/L (136-145)
[2023-04-03] MEDS: INSULIN LISPRO (NovoLOG) PER UNIT SC SCH ×7 (08:36→21:44)
[2023-04-03] MEDS: METHADONE 10MG TAB PO SCH (08:38)
[2023-04-03] MEDS: GABAPENTIN 300 MG CAP PO SCH ×3 (08:38→20:37)
[2023-04-03] MEDS: LEVEMIR (INSULIN DETEMIR) 1 UNITS/0.01ML SC SCH (08:38)
[2023-04-03] MEDS: HEPARIN SOD (PORCINE) 5000UNITS/ML 1ML VIAL/SYRINGE SQ SCH (08:40)
[2023-04-03] MEDS ORDERED: FUROSEMIDE 20MG/2ML VIAL IV ONE (09:55)
[2023-04-03] MEDS ORDERED: PATIROMER SORBITEX CALCIUM 8.4 GM POWDER PACKET (VELTASSA) PO ONE (11:00)
[2023-04-03] MEDS ORDERED: FUROSEMIDE 20 MG TAB PO ONE (11:00)
[2023-04-03 14:00] VITALS: BP 145/88; TEMP 97.9; O2SAT 100
[2023-04-03 20:09] VITALS: BP 139/68; TEMP 97.2; O2SAT 100
[2023-04-03] MEDS: DULoxetine 30MG CAPSULE (CYMBALTA) PO SCH (20:37)
[2023-04-03] MEDS ORDERED: ENOXAPARIN 40MG/0.4ML SYRINGE (J1650 PER 10MG) SC SCH (21:00)
[2023-04-04] MEDS: LevoFLOXacin 750 MG TABLET PO SCH (05:38)
[2023-04-04 06:09] VITALS: BP 144/63; TEMP 96.8; O2SAT 96
[2023-04-04 06:54] LABS: HEMATOCRIT 30.3 % (36.0-47.0); HEMOGLOBIN 9.6 g/dl (12.0-15.5); MEAN CORPUSCULAR HEMOGLOBIN 30.1 pg (27.0-33.0); MEAN CORPUSCULAR HGB CONC 31.7 g/dl (32.0-36.5); PLATELET COUNT, AUTOMATED 493 10^3/uL (150-450); RED BLOOD COUNT 3.19 10^6/uL (4.00-5.40); WHITE BLOOD COUNT 8.5 10^3/uL (4.0-10.0)
[2023-04-04 07:54] LABS: CPK CREATINE PHOSPHOKINASE 17 U/L (34-145)
[2023-04-04] MEDS: LEVEMIR (INSULIN DETEMIR) 1 UNITS/0.01ML SC SCH (08:58)
[2023-04-04] MEDS: INSULIN LISPRO (NovoLOG) PER UNIT SC SCH ×4 (08:59→11:26)
[2023-04-04] MEDS: METHADONE 10MG TAB PO SCH (09:00)
[2023-04-04] MEDS ORDERED: DOCUSATE SODIUM 100MG CAPSULE PO SCH (09:00)
[2023-04-04] MEDS: GABAPENTIN 300 MG CAP PO SCH (09:00)
[2023-04-04 10:35] LABS: BLOOD UREA NITROGEN 24 MG/DL (9-23); CALCIUM LEVEL 9.1 MG/DL (8.5-10.1); CARBON DIOXIDE LEVEL 31 MMOL/L (20-31); CHLORIDE LEVEL 98 MMOL/L (98-107); CREATININE FOR GFR 0.86 MG/DL (0.55-1.30); GLOMERULAR FILTRATION RATE > 60.0 (>58); GLUCOSE, FASTING 462 MG/DL (60-100); POTASSIUM SERUM 5.3 MMOL/L (3.5-5.1); SODIUM LEVEL 129 MMOL/L (136-145)
[2023-04-04] MEDS ORDERED: LEVO1TAB40 PO (10:36)
[2023-04-04] MEDS ORDERED: INSULIN LISPRO (NovoLOG) PER UNIT SC STA (11:38)
[2023-04-04 12:11] LABS: PROCALCITONIN 0.04 ng/ml
[2023-04-04] MEDS ORDERED: LASI20TA3 PO (13:33)
[2023-04-04] MEDS ORDERED: LANTINJ4 SC (13:44)
[2023-04-04] MEDS ORDERED: INSUHUMDS SC (13:45)
== END 2023-04-04 15:50 | disposition home health service (06) | DRG 314 ==
LOC: M ED 20:52 → M ED INP 03-29 12:24 → M MS4PR 03-29 20:54
PROVIDERS: ADMIT Internal Medicine; ATTEND Internal Medicine
PROC: 0QBM0ZZ Excision of Left Tarsal, Open Approach (ICD-10-PCS; 2023-03-31)
PROC: 0JBR0ZZ Excision of Left Foot Subcutaneous Tissue and Fascia, Open Approach (ICD-10-PCS; principal; 2023-03-31 16:30)
DX: E10.69 Type 1 diabetes mellitus with other specified complication (principal); E10.40 Type 1 diabetes mellitus with diabetic neuropathy, unspecified; M86.672 Other chronic osteomyelitis, left ankle and foot; E10.65 Type 1 diabetes mellitus with hyperglycemia; F11.20 Opioid dependence, uncomplicated; L03.116 Cellulitis of left lower limb; F50.81 Binge eating disorder; K21.9 Gastro-esophageal reflux disease without esophagitis; D50.9 Iron deficiency anemia, unspecified; Z79.4 Long term (current) use of insulin; Z79.899 Other long term (current) drug therapy; Z88.0 Allergy status to penicillin; B96.5 Pseudomonas (aeruginosa) (mallei) (pseudomallei) as the cause of diseases classified elsewhere; F32.A Depression, unspecified; Z89.022 Acquired absence of left finger(s)

== ENCOUNTER → 2023-04-15 | Outpatient (REF) | payer OTHER, MEDICAID ==
[~2023-04-15] MED LIST changes: +LASI20TA3 PO; +[UNRECOGNIZED DRUG - REMARK]
[2023-04-15 18:23] LABS: BASO # 0.1 10^3/uL (0.0-0.2); BASO % 0.8 % (0.0-1.0); EOS # 0.2 10^3/uL (0.0-0.5); EOS % 1.7 % (0.0-3.0); HEMATOCRIT 32.7 % (36.0-47.0); HEMOGLOBIN 10.2 g/dl (12.0-15.5); LYMPH % 29.7 % (24.0-44.0); MEAN CORPUSCULAR HEMOGLOBIN 29.1 pg (27.0-33.0); MEAN CORPUSCULAR HGB CONC 31.2 g/dl (32.0-36.5); MEAN CORPUSCULAR VOLUME 93.2 fl (80.0-96.0); MONO # 0.8 10^3/uL (0.0-0.8); MONO % 7.8 % (2.0-8.0); NEUTROPHILS # 6.1 10^3/uL (1.5-8.5); NEUTROPHILS % 59.4 % (36.0-66.0); PLATELET COUNT, AUTOMATED 537 10^3/uL (150-450); RED BLOOD COUNT 3.51 10^6/uL (4.00-5.40); WHITE BLOOD COUNT 10.2 10^3/uL (4.0-10.0)
[2023-04-15 18:41] LABS: ALBUMIN 2.8 G/DL (3.2-5.2); BILIRUBIN,TOTAL 0.2 MG/DL (0.3-1.2); CALCIUM LEVEL 10.1 MG/DL (8.5-10.1); CREATININE FOR GFR 1.23 MG/DL (0.55-1.30); TOTAL PROTEIN 7.8 G/DL (5.7-8.2)
[2023-04-15 18:53] LABS: HEMOGLOBIN A1c 8.7 % (4.0-6.0)
== END ==
LOC: M LAB REF 16:34
PROVIDERS: ATTEND Nurse Practitioner Adult Health
DX: I10 Essential (primary) hypertension (principal); E11.9 Type 2 diabetes mellitus without complications

== ENCOUNTER → 2023-04-26 | Outpatient (CLI) | payer OTHER ==
[2023-04-26 15:58] LABS: BASO # 0.1 10^3/uL (0.0-0.2); BASO % 0.5 % (0.0-1.0); EOS # 0.3 10^3/uL (0.0-0.5); EOS % 2.4 % (0.0-3.0); HEMATOCRIT 31.5 % (36.0-47.0); HEMOGLOBIN 9.8 g/dl (12.0-15.5); LYMPH # 2.7 10^3/uL (1.5-5.0); LYMPH % 24.5 % (24.0-44.0); MEAN CORPUSCULAR HGB CONC 31.1 g/dl (32.0-36.5); MEAN CORPUSCULAR VOLUME 93.2 fl (80.0-96.0); MONO # 0.7 10^3/uL (0.0-0.8); MONO % 6.3 % (2.0-8.0); NEUTROPHILS # 7.2 10^3/uL (1.5-8.5); NEUTROPHILS % 65.6 % (36.0-66.0); PLATELET COUNT, AUTOMATED 479 10^3/uL (150-450); RED BLOOD COUNT 3.38 10^6/uL (4.00-5.40)
[2023-04-26 16:05] LABS: ERYTHROCYTE SEDIMENTATION RATE 82 mm/hr (0-20)
== END ==
LOC: M PLALAB 13:05
PROVIDERS: ATTEND Internal Medicine Infectious Disease
DX: M86.672 Other chronic osteomyelitis, left ankle and foot (principal); B18.2 Chronic viral hepatitis C

== ENCOUNTER → 2023-06-29 | Outpatient (REF) | payer OTHER ==
[~2023-06-29] MED LIST changes: -SENN1TAB41 PO; +SENN1TAB85 PO
== END ==
LOC: M LAB REF 12:27
PROVIDERS: ATTEND Podiatrist
DX: M86.9 Osteomyelitis, unspecified (principal)

== ENCOUNTER 2023-09-21 10:23 | Inpatient (IN) | payer OTHER, MEDICAID ==
[2023-09-21] VITALS (32 sets, daily range): BP systolic 79–110; BP diastolic 51–68; TEMP 96.5–96.7; O2SAT 100
[~2023-09-21] VITALS: Ht 157.5 cm; Wt 53.3 kg
[2023-09-21] MEDS ORDERED: SUCCINYLCHOLINE INJ 200MG/10ML VIAL IV ONE (10:35)
[2023-09-21] MEDS: LIDOCAINE 2% 5ML JELLY UROJET TOP ONE (10:35)
[2023-09-21] MEDS: MIDAZOLAM 100MG/100ML-0.9%NACL 100 MG in IV 1 EA IV SCH ×2 (10:43→13:25)
[2023-09-21 10:59] LABS: BASO % 0.1 % (0.0-1.0); HEMATOCRIT 32.7 % (36.0-47.0); HEMOGLOBIN 9.4 g/dl (12.0-15.5); LYMPH # 1.5 10^3/uL (1.5-5.0); LYMPH % 9.2 % (24.0-44.0); MEAN CORPUSCULAR HEMOGLOBIN 21.4 pg (27.0-33.0); MEAN CORPUSCULAR HGB CONC 28.7 g/dl (32.0-36.5); MEAN CORPUSCULAR VOLUME 74.5 fl (80.0-96.0); MONO # 0.9 10^3/uL (0.0-0.8); MONO % 5.6 % (2.0-8.0); NEUTROPHILS # 13.2 10^3/uL (1.5-8.5); NEUTROPHILS % 83.6 % (36.0-66.0); PLATELET COUNT, AUTOMATED 435 10^3/uL (150-450); RED BLOOD COUNT 4.39 10^6/uL (4.00-5.40); WHITE BLOOD COUNT 15.8 10^3/uL (4.0-10.0)
[2023-09-21] MEDS: MIDAZOLAM INJ 2MG/2ML VIAL IV STA (11:00)
[2023-09-21 11:11] LABS: INR 1.46; PARTIAL THROMBOPLASTIN TIME 24.6 SECONDS (24.8-34.2); PROTHROMBIN TIME 17.3 SECONDS (12.5-14.5)
[2023-09-21 11:21] LABS: ABG BASE EXCESS -11.2 (-2.0-2.0); ABG HCO3 11.8 MMOL/L (22.0-26.0); ABG O2 SATURATION 98.9 % (95.0-99.0); ABG PARTIAL PRESSURE CO2 19.7 mmHg (35.0-45.0); ABG PARTIAL PRESSURE O2 172.9 mmHg (75.0-100.0); ABG STANDARD HCO3 15.6 MMOL/L. (22.0-26.0); ABG TOTAL CO2 12.5 MMOL/L (22.0-29.0); ABG pH (ARTERIAL) 7.397 UNITS (7.350-7.450)
[2023-09-21] MEDS: ETOMIDATE INJ 20MG/10ML VIAL IV ONE (11:22)
[2023-09-21 11:24] LABS: ALBUMIN 1.5 G/DL (3.2-5.2); ALKALINE PHOSPHATASE 238 U/L (46-116); ALT/SGPT 663 U/L (7.0-40); AST/SGOT 686 U/L (<34); BILIRUBIN,DIRECT 0.4 MG/DL (<0.4); BILIRUBIN,TOTAL 0.7 MG/DL (0.3-1.2); BLOOD UREA NITROGEN 74 MG/DL (9-23); CALCIUM LEVEL 6.8 MG/DL (8.5-10.1); CARBON DIOXIDE LEVEL 14 MMOL/L (20-31); CHLORIDE LEVEL 111 MMOL/L (98-107); CREATININE FOR GFR 1.41 MG/DL (0.55-1.30); GLOMERULAR FILTRATION RATE 42.6 (>58); GLUCOSE, FASTING 359 MG/DL (60-100); POTASSIUM SERUM 5.2 MMOL/L (3.5-5.1); SODIUM LEVEL 140 MMOL/L (136-145); TOTAL PROTEIN 5.2 G/DL (5.7-8.2)
[2023-09-21] MEDS: NS 1,000 ML IV ONE ×2 (11:24→12:23)
[2023-09-21] MEDS: SUCCINYLCHOLINE 100MG/5ML SYRINGE IV ONE (11:29)
[2023-09-21 11:30] LABS: PROCALCITONIN 0.95 ng/ml
[2023-09-21 11:31] LABS: AMYLASE < 20 U/L (30-118)
[2023-09-21 11:36] LABS: APPEARANCE, URINE MANUAL CLEAR (CLEAR); BILIRUBIN, URINE MANUAL NEGATIVE (NEGATIVE); BLOOD URINE MANUAL POSITIVE (NEGATIVE); COLOR, URINE MANUAL YELLOW (YELLOW); GLUCOSE, URINE (UA) MANUAL 4+(1000 MG/DL) mg/dL (NEGATIVE); KETONE, URINE MANUAL 3+ mg/dL (NEGATIVE); LEUKOCYTE ESTERASE, URINE MAN NEGATIVE (NEGATIVE); NITRITE, URINE MANUAL NEGATIVE (NEGATIVE); PROTEIN, URINE MANUAL 3+ mg/dL (NEGATIVE); UROBILINOGEN, URINE MANUAL NORMAL (NORMAL)
[2023-09-21 11:40] LABS: SQUAMOUS EPITHELIAL CELL URINE SMALL AMOUNT /hpf (SMALL AMT)
[2023-09-21 11:41] LABS: BACTERIA, URINE NONE SEEN; HYALINE CAST, URINE NONE SEEN /lpf (0-1)
[2023-09-21 11:55] LABS: ETHYL ALCOHOL (ETHANOL) < 0.003 % (0.000-0.010)
[2023-09-21 11:56] LABS: SALICYLATE LEVEL < 3.0 MG/DL (<30)
[2023-09-21] MEDS: fentaNYL 100 MCG/2 ML INJECTION IV ONE (12:29)
[2023-09-21] MEDS: BOOSTRIX VACCINE (TETANUS/DIPHTH/ACEL. PERTUSSIS) 0.5ML SYR IM.IMMUN ONE (12:32)
[2023-09-21] MEDS: NS 1,530 ML in IV 1 EA IV ONE (12:40)
[2023-09-21] MEDS ORDERED: ISOVUE-370 76% 100ML VIAL As Ordered ONE (12:54)
[2023-09-21] MEDS: HumuLIN R (REGULAR) INSULIN (NovoLIN R) **100U/ML** PER UNIT IV ONE (12:58)
[2023-09-21 13:16] LABS: MAGNESIUM LEVEL 2.6 MG/DL (1.8-2.4)
[2023-09-21 13:18] LABS: CPK CREATINE PHOSPHOKINASE 1170 U/L (34-145)
[2023-09-21] MEDS ORDERED: D5W/LR 1,000 ML IV SCH (13:25)
[2023-09-21 13:26] LABS: BARBITURATES URINE NEGATIVE (NEGATIVE); COCAINE METABOLITE URINE NEGATIVE (NEGATIVE)
[2023-09-21 13:27] LABS: AMPHETAMINES LEVEL URINE NEGATIVE (NEGATIVE); BENZODIAZEPINES URINE NEGATIVE (NEGATIVE); CANNABINOIDS URINE NEGATIVE (NEGATIVE); OPIATES URINE NEGATIVE (NEGATIVE); PHENCYCLIDINE URINE NEGATIVE (NEGATIVE)
[2023-09-21 13:29] LABS: METHADONE URINE POSITIVE (NEGATIVE)
[2023-09-21] MEDS: propofoL 1,000 MG in IV 1 EA IV SCH (14:00)
[2023-09-21] MEDS: cefTRIAXone SOD 2 GM in D5W MINI-BAG PLUS 50 ML IV SCH (14:12)
[2023-09-21] MEDS: PANTOPRAZOLE 40MG VIAL IV SCH (14:12)
[2023-09-21] MEDS ORDERED: DEXTROSE 50% 50ML SYRINGE IV PRN (14:15)
[2023-09-21] MEDS ORDERED: GLUCOSE 4 GM CHEW PO PRN (14:15)
[2023-09-21] MEDS ORDERED: GLUCAGON INJ 1MG VIAL SC PRN (14:15)
[2023-09-21] MEDS ORDERED: GABA-284 PO (14:25)
[2023-09-21] MEDS ORDERED: HEPARIN SOD (PORCINE) 5000UNITS/ML 1ML VIAL/SYRINGE IV PRN (14:25)
[2023-09-21] MEDS ORDERED: INSU100I60 INJ (14:25)
[2023-09-21] MEDS ORDERED: OXCA600T8 PO (14:31)
[2023-09-21] MEDS ORDERED: BUSP1TAB PO (14:31)
[2023-09-21] MEDS ORDERED: HYDR-3363 PO (14:31)
[2023-09-21] MEDS ORDERED: STOO100C30 PO (14:31)
[2023-09-21] MEDS ORDERED: OMEP40CA5 PO (14:31)
[2023-09-21] MEDS ORDERED: GUAN1TAB16 PO (14:31)
[2023-09-21] MEDS ORDERED: HOME MED LIST COMPLETE! XX SCH (14:35)
[2023-09-21 15:28] LABS: VENOUS BASE EXCESS -8.7 (-2.0-2.0); VENOUS HCO3 14.5 MMOL/L (23.0-27.0); VENOUS O2 SATURATION 99.8 % (60.0-80.0); VENOUS PARTIAL PRESSURE CO2 23.3 mmHg (38.0-50.0); VENOUS PARTIAL PRESSURE O2 262.3 mmHg (30.0-50.0); VENOUS PH 7.412 UNITS (7.330-7.430); VENOUS STANDARD HCO3 17.4 MMOL/L; VENOUS TOTAL CO2 15.2 MMOL/L (24.0-28.0)
[2023-09-21] MEDS: HEPARIN DRIP 25,000 UNITS in IV 1 EA IV SCH (15:30)
[2023-09-21] MEDS ORDERED: PILL CUTTER 1 EACH XX PRN (15:45)
[2023-09-21] MEDS: AZITHROMYCIN INJ 500 MG, VIAL MATE ADAPTER 1 EACH in NS 250 ML IV SCH (15:58)
[2023-09-21] MEDS: D5W/LR 1,000 ML IV SCH (16:01)
[2023-09-21] MEDS: GABAPENTIN 400MG CAP PO SCH (17:00)
[2023-09-21] MEDS: INSULIN LISPRO (NovoLOG) PER UNIT SC SCH (18:41)
[2023-09-21] MEDS: OXcarbazepine 300 MG TAB PO SCH (21:00)
[2023-09-21] MEDS: busPIRone 5 MG TAB PO SCH (21:00)
[2023-09-21] MEDS: DOCUSATE SODIUM 100MG CAPSULE PO SCH (21:00)
[2023-09-21] MEDS ORDERED: HEPARIN SOD (PORCINE) 5000UNITS/ML 1ML VIAL/SYRINGE SC SCH (22:00)
[2023-09-21 22:20] LABS: ALBUMIN 1.3 G/DL (3.2-5.2); BILIRUBIN,TOTAL 0.3 MG/DL (0.3-1.2); CALCIUM LEVEL 7.5 MG/DL (8.5-10.1); CREATININE FOR GFR 1.28 MG/DL (0.55-1.30); GLOMERULAR FILTRATION RATE 47.6 (>58); POTASSIUM SERUM 3.2 MMOL/L (3.5-5.1); TOTAL PROTEIN 4.7 G/DL (5.7-8.2)
[2023-09-22] VITALS (52 sets, daily range): BP systolic 81–132; BP diastolic 51–72; TEMP 96.5–99.9; O2SAT 99–100
[2023-09-22 05:15] LABS: BASO % 0.1 % (0.0-1.0); EOS # 0.1 10^3/uL (0.0-0.5); EOS % 0.8 % (0.0-3.0); HEMATOCRIT 28.9 % (36.0-47.0); HEMOGLOBIN 8.6 g/dl (12.0-15.5); LYMPH # 2.4 10^3/uL (1.5-5.0); LYMPH % 17.7 % (24.0-44.0); MEAN CORPUSCULAR HEMOGLOBIN 21.3 pg (27.0-33.0); MEAN CORPUSCULAR HGB CONC 29.8 g/dl (32.0-36.5); MEAN CORPUSCULAR VOLUME 71.5 fl (80.0-96.0); MONO # 0.8 10^3/uL (0.0-0.8); MONO % 5.7 % (2.0-8.0); NEUTROPHILS # 10.1 10^3/uL (1.5-8.5); NEUTROPHILS % 74.7 % (36.0-66.0); RED BLOOD COUNT 4.04 10^6/uL (4.00-5.40); WHITE BLOOD COUNT 13.5 10^3/uL (4.0-10.0)
[2023-09-22 05:17] LABS: PLATELET COUNT, AUTOMATED 322 10^3/uL (150-450)
[2023-09-22 05:25] LABS: INR 1.37; PARTIAL THROMBOPLASTIN TIME 59.4 SECONDS (24.8-34.2); PROTHROMBIN TIME 16.4 SECONDS (12.5-14.5)
[2023-09-22 06:01] LABS: ALBUMIN 1.5 G/DL (3.2-5.2); BILIRUBIN,TOTAL 0.3 MG/DL (0.3-1.2); CALCIUM LEVEL 7.8 MG/DL (8.5-10.1); CREATININE FOR GFR 1.34 MG/DL (0.55-1.30); GLOMERULAR FILTRATION RATE 45.1 (>58); POTASSIUM SERUM 3.6 MMOL/L (3.5-5.1); TOTAL PROTEIN 5.2 G/DL (5.7-8.2)
[2023-09-22] MEDS: LR 1,000 ML IV SCH (10:00)
[2023-09-22 10:17] LABS: ABG BASE EXCESS -1.3 (-2.0-2.0); ABG HCO3 20.8 MMOL/L (22.0-26.0); ABG O2 SATURATION 96.1 % (95.0-99.0); ABG PARTIAL PRESSURE CO2 26.1 mmHg (35.0-45.0); ABG PARTIAL PRESSURE O2 80.1 mmHg (75.0-100.0); ABG STANDARD HCO3 23.4 MMOL/L. (22.0-26.0); ABG TOTAL CO2 21.6 MMOL/L (22.0-29.0); ABG pH (ARTERIAL) 7.519 UNITS (7.350-7.450)
[2023-09-23] VITALS (25 sets, daily range): BP systolic 99–135; BP diastolic 56–76; TEMP 97.5–98.4; O2SAT 97–100
[2023-09-23 03:36] LABS: BASO % 0.3 % (0.0-1.0); EOS # 0.2 10^3/uL (0.0-0.5); HEMATOCRIT 27.5 % (36.0-47.0); HEMOGLOBIN 8.2 g/dl (12.0-15.5); LYMPH # 2.7 10^3/uL (1.5-5.0); LYMPH % 18.9 % (24.0-44.0); MEAN CORPUSCULAR HEMOGLOBIN 21.6 pg (27.0-33.0); MEAN CORPUSCULAR HGB CONC 29.8 g/dl (32.0-36.5); MEAN CORPUSCULAR VOLUME 72.6 fl (80.0-96.0); MONO # 0.9 10^3/uL (0.0-0.8); NEUTROPHILS # 10.6 10^3/uL (1.5-8.5); PLATELET COUNT, AUTOMATED 296 10^3/uL (150-450); RED BLOOD COUNT 3.79 10^6/uL (4.00-5.40); WHITE BLOOD COUNT 14.5 10^3/uL (4.0-10.0)
[2023-09-23 04:45] LABS: ALBUMIN 1.5 G/DL (3.2-5.2); BILIRUBIN,TOTAL 0.2 MG/DL (0.3-1.2); CALCIUM LEVEL 7.5 MG/DL (8.5-10.1); CREATININE FOR GFR 1.12 MG/DL (0.55-1.30); GLOMERULAR FILTRATION RATE 55.5 (>58); POTASSIUM SERUM 4.2 MMOL/L (3.5-5.1); TOTAL PROTEIN 5.3 G/DL (5.7-8.2)
[2023-09-23 05:43] LABS: ABG BASE EXCESS -0.6 (-2.0-2.0); ABG HCO3 21.8 MMOL/L (22.0-26.0); ABG O2 SATURATION 95.2 % (95.0-99.0); ABG PARTIAL PRESSURE CO2 27.7 mmHg (35.0-45.0); ABG PARTIAL PRESSURE O2 71.8 mmHg (75.0-100.0); ABG TOTAL CO2 22.7 MMOL/L (22.0-29.0); ABG pH (ARTERIAL) 7.514 UNITS (7.350-7.450)
[2023-09-23] MEDS: NS 0.45% 1,000 ML IV SCH (10:19)
[2023-09-23] MEDS ORDERED: PROHANCE 279.3MG/ML 5ML VIAL As Ordered ONE (14:19)
[2023-09-23] MEDS: ENOXAPARIN 60MG/0.6ML SYRINGE (J1650 PER 10MG) SC ONE (15:39)
[2023-09-24] VITALS (30 sets, daily range): BP systolic 101–156; BP diastolic 61–79; TEMP 97.9–103.5; O2SAT 95–100
[2023-09-24] MEDS: ACETAMINOPHEN *IV* 1,000 MG in IV 1 EA IV ONE (04:33)
[2023-09-24 05:27] LABS: BASO % 0.3 % (0.0-1.0); EOS # 0.1 10^3/uL (0.0-0.5); EOS % 0.4 % (0.0-3.0); HEMATOCRIT 26.8 % (36.0-47.0); LYMPH # 2.4 10^3/uL (1.5-5.0); LYMPH % 15.7 % (24.0-44.0); MEAN CORPUSCULAR HEMOGLOBIN 21.7 pg (27.0-33.0); MEAN CORPUSCULAR HGB CONC 29.9 g/dl (32.0-36.5); MEAN CORPUSCULAR VOLUME 72.6 fl (80.0-96.0); MONO # 1.1 10^3/uL (0.0-0.8); MONO % 6.9 % (2.0-8.0); NEUTROPHILS # 11.7 10^3/uL (1.5-8.5); NEUTROPHILS % 75.4 % (36.0-66.0); PLATELET COUNT, AUTOMATED 280 10^3/uL (150-450); RED BLOOD COUNT 3.69 10^6/uL (4.00-5.40); WHITE BLOOD COUNT 15.6 10^3/uL (4.0-10.0)
[2023-09-24 05:54] LABS: ALBUMIN 1.4 G/DL (3.2-5.2); ALKALINE PHOSPHATASE 286 U/L (46-116); ALT/SGPT 504 U/L (7.0-40); AST/SGOT 547 U/L (<34); BILIRUBIN,TOTAL 0.2 MG/DL (0.3-1.2); BLOOD UREA NITROGEN 45 MG/DL (9-23); CALCIUM LEVEL 7.1 MG/DL (8.5-10.1); CARBON DIOXIDE LEVEL 25 MMOL/L (20-31); CHLORIDE LEVEL 113 MMOL/L (98-107); CREATININE FOR GFR 1.01 MG/DL (0.55-1.30); GLOMERULAR FILTRATION RATE > 60.0 (>58); GLUCOSE, FASTING 231 MG/DL (60-100); POTASSIUM SERUM 4.5 MMOL/L (3.5-5.1); SODIUM LEVEL 144 MMOL/L (136-145); TOTAL PROTEIN 5.3 G/DL (5.7-8.2)
[2023-09-24] MEDS: ENOXAPARIN 60MG/0.6ML SYRINGE (J1650 PER 10MG) SC SCH (06:07)
[2023-09-24 06:28] LABS: ABG BASE EXCESS -2.3 (-2.0-2.0); ABG HCO3 20.3 MMOL/L (22.0-26.0); ABG O2 SATURATION 98.6 % (95.0-99.0); ABG PARTIAL PRESSURE CO2 26.7 mmHg (35.0-45.0); ABG PARTIAL PRESSURE O2 108.4 mmHg (75.0-100.0); ABG STANDARD HCO3 22.5 MMOL/L. (22.0-26.0); ABG TOTAL CO2 21.1 MMOL/L (22.0-29.0); ABG pH (ARTERIAL) 7.498 UNITS (7.350-7.450)
[2023-09-25] VITALS (13 sets, daily range): BP systolic 112–129; BP diastolic 67–77; TEMP 97.1–98.1; O2SAT 99–100
[2023-09-25 05:51] LABS: ABG BASE EXCESS 0.1 (-2.0-2.0); ABG HCO3 22.9 MMOL/L (22.0-26.0); ABG PARTIAL PRESSURE O2 123.5 mmHg (75.0-100.0); ABG STANDARD HCO3 24.6 MMOL/L. (22.0-26.0); ABG TOTAL CO2 23.8 MMOL/L (22.0-29.0)
[2023-09-25 08:35] LABS: HEMATOCRIT 26.8 % (36.0-47.0); HEMOGLOBIN 7.8 g/dl (12.0-15.5); MEAN CORPUSCULAR HEMOGLOBIN 21.6 pg (27.0-33.0); MEAN CORPUSCULAR HGB CONC 29.1 g/dl (32.0-36.5); MEAN CORPUSCULAR VOLUME 74.2 fl (80.0-96.0); PLATELET COUNT, AUTOMATED 284 10^3/uL (150-450); RED BLOOD COUNT 3.61 10^6/uL (4.00-5.40); WHITE BLOOD COUNT 16.1 10^3/uL (4.0-10.0)
[2023-09-25 09:04] LABS: ALBUMIN 1.2 G/DL (3.2-5.2); ALKALINE PHOSPHATASE 236 U/L (46-116); ALT/SGPT 305 U/L (7.0-40); AST/SGOT 170 U/L (<34); BILIRUBIN,TOTAL 0.2 MG/DL (0.3-1.2); BLOOD UREA NITROGEN 37 MG/DL (9-23); CALCIUM LEVEL 7.7 MG/DL (8.5-10.1); CARBON DIOXIDE LEVEL 26 MMOL/L (20-31); CHLORIDE LEVEL 111 MMOL/L (98-107); GLOMERULAR FILTRATION RATE > 60.0 (>58); GLUCOSE, FASTING 251 MG/DL (60-100); POTASSIUM SERUM 4.6 MMOL/L (3.5-5.1); SODIUM LEVEL 141 MMOL/L (136-145); TOTAL PROTEIN 5.1 G/DL (5.7-8.2)
[2023-09-25] MEDS: MORPHINE 2 MG/ML 1ML VIAL IV PRN (16:13)
[2023-09-25] MEDS: SCOPOLAMINE 1MG TRANSDERMAL PATCH TOP SCH (16:14)
[2023-09-25] MEDS: LORazepam 2 MG/ML 1ML VIAL IV PRN (18:18)
== END 2023-09-25 22:04 | disposition expired | DRG 130 ==
LOC: M ED 10:23 → M ED INP 13:21 → M ICU 15:06
PROVIDERS: ADMIT Internal Medicine Pulmonary Disease; ATTEND Internal Medicine
PROC: 5A1955Z Respiratory Ventilation, Greater than 96 Consecutive Hours (ICD-10-PCS; 2023-09-21)
PROC: 0BH17EZ Insertion of Endotracheal Airway into Trachea, Via Natural or Artificial Opening (ICD-10-PCS; 2023-09-21)
PROC: B246ZZZ Ultrasonography of Right and Left Heart (ICD-10-PCS; principal; 2023-09-22)
DX: J96.00 Acute respiratory failure, unspecified whether with hypoxia or hypercapnia (principal); I26.99 Other pulmonary embolism without acute cor pulmonale; I63.9 Cerebral infarction, unspecified; G93.41 Metabolic encephalopathy; G93.1 Anoxic brain damage, not elsewhere classified; J18.9 Pneumonia, unspecified organism; N17.9 Acute kidney failure, unspecified; D68.9 Coagulation defect, unspecified; E10.40 Type 1 diabetes mellitus with diabetic neuropathy, unspecified; E87.20 Acidosis, unspecified; M62.82 Rhabdomyolysis; E10.621 Type 1 diabetes mellitus with foot ulcer; I42.9 Cardiomyopathy, unspecified; I50.42 Chronic combined systolic (congestive) and diastolic (congestive) heart failure; L89.896 Pressure-induced deep tissue damage of other site; E87.5 Hyperkalemia; L97.528 Non-pressure chronic ulcer of other part of left foot with other specified severity; E10.65 Type 1 diabetes mellitus with hyperglycemia; F50.81 Binge eating disorder; L97.518 Non-pressure chronic ulcer of other part of right foot with other specified severity; Z51.5 Encounter for palliative care; Z66 Do not resuscitate; K21.9 Gastro-esophageal reflux disease without esophagitis; D53.9 Nutritional anemia, unspecified; R74.01 Elevation of levels of liver transaminase levels; F32.A Depression, unspecified; B17.9 Acute viral hepatitis, unspecified; Z79.4 Long term (current) use of insulin; Z79.899 Other long term (current) drug therapy; Z88.0 Allergy status to penicillin